=== PATIENT | female | born 1940 | race Caucasian/White ===

== ENCOUNTER 2017-02-10 14:18 | Emergency (ER) | payer MEDICARE ==
[~2017-02-10] VITALS: Ht 152.4 cm; Wt 45.4 kg
[~2017-02-10 14:18] MED LIST: ALBU6.7H INH; Acetaminophen PO; BESI5DRO OP; CYCL5.5D OP; FLUT1DIS27 INH; FOLI1TAB16 PO; LOTE5DRO3 LEFTEYE; METH2.5T PO; MONT10TA22 PO; MULT-70 PO; Metoprolol Tartrate PO; PANT40TA2 PO; PRED20TA PO; SULF1TAB48 PO
[2017-02-10] MEDS ORDERED: ALBUTEROL SULFATE 2.5 MG/3 ML NEBU NEB ONE (14:45)
[2017-02-10] MEDS ORDERED: IV NORMAL SALINE 500 ML BAG IV ONE (14:45)
[2017-02-10] MEDS ORDERED: IPRATROPIUM BROMIDE 0.5 MG/2.5 ML NEBU NEB ONE (14:45)
[2017-02-10] MEDS ORDERED: ALBUTEROL SULFATE 2.5 MG/ 0.5 ML NEBU ONE (14:59)
[2017-02-10] MEDS ORDERED: IPRATROPIUM BROMIDE 0.5 MG/2.5 ML NEBU ONE (14:59)
--- NOTE | 2017-02-10 15:08 | NUR ---
lbs drawn, influenza swabs sent, resp tx completed, pt to xray dept.
[2017-02-10 15:16] LABS: CALCIUM 8.8 mg/dL (8.5-10.1); CREATININE 1.1 mg/dL (0.6-1.3); POTASSIUM 4.9 mmol/L (3.5-5.1)
[2017-02-10 15:19] LABS: BASOPHILS % (AUTO) 0.4 % (0.0-2.0); EOSINOPHILS # (AUTO) 0.1 K/uL (0.0-0.7); EOSINOPHILS % (AUTO) 0.8 % (0.0-7.0); HEMATOCRIT 35.3 % (37.0-47.0); HEMOGLOBIN 11.5 g/dL (12.0-16.0); LYMPHOCYTES # (AUTO) 2.2 K/uL (0.8-4.8); LYMPHOCYTES % (AUTO) 18.9 % (20.5-51.5); MEAN CORPUSCULAR HEMOGLOBIN 29.7 uug (27.0-31.0); MEAN CORPUSCULAR HGB CONC 33 g/dL (32.0-37.0); MEAN CORPUSCULAR VOLUME 91.3 fL (81.0-99.0); MONOCYTES # (AUTO) 0.9 K/uL (0.1-1.30); MONOCYTES % (AUTO) 7.9 % (0.0-11.0); NEUTROPHILS # (AUTO) 8.2 K/uL (1.8-8.9); PLATELET COUNT (AUTO) 327 K/uL (150-450); RED BLOOD CELL COUNT(AUTO) 3.86 MIL/uL (4.20-5.40); RED CELL DISTRIBUTION WIDTH 16.8 % (11.5-14.5); WHITE BLOOD COUNT (AUTO) 11.4 K/uL (4.0-11.2)
[2017-02-10 15:22] LABS: TROPONIN I < 0.017 ng/mL (0.00-0.056)
[2017-02-10 15:29] LABS: ALBUMIN 3.5 g/dL (3.4-5.0); BILIRUBIN,DIRECT 0.1 mg/dL (0.0-0.2); BILIRUBIN,TOTAL 0.4 mg/dL (0.2-1.0)
[2017-02-10 15:36] LABS: ANISOCYTOSIS 1+
[2017-02-10 16:07] LABS: *BILIRUBIN,URIN NEGATIVE (NEGATIVE); *BLOOD, URINE NEGATIVE (NEGATIVE); *COLOR,URINE YELLOW (YELLOW); *KETONES,URINE NEGATIVE (NEGATIVE); *PROTEIN,URINE NEGATIVE (NEGATIVE); *UROBILINOGEN,URINE 0.2 E.U./dl (NORMAL); NITRITE, URINE NEGATIVE (NEGATIVE); PH,URINE 6.5 (5.0-8.0); UGLUCOSE NEGATIVE (NEGATIVE)
[2017-02-10 16:19] LABS: *CLARITY,URINE SLIGHTLY HAZY (CLEAR); BACTERIA,URINE MODERATE /HPF (NONE SEEN); LEUKOCYTE ESTERASE ,URINE TRACE (NEGATIVE); RBC,URINE 0-3 /HPF (0-3)
[2017-02-10 16:20] LABS: CALCIUM OXALATE CRYSTALS,UR FEW /HPF (NONE SEEN); MUCUS,URINE MODERATE /LPF (0-FEW); SQUAMOUS EPITHELIAL CELL,UR FEW /HPF (NONE SEEN)
[2017-02-10] MEDS ORDERED: ONDANSETRON IV *ER 4 MG/2 ML VIAL IV ONE (16:30)
[2017-02-10] MEDS ORDERED: HYDROMORPHONE 1 MG/1 ML DISP.SYRIN IV ONE (16:30)
[2017-02-10] MEDS ORDERED: ONDANSETRON 4 MG/2 ML VIAL ONE (16:35)
[2017-02-10] MEDS ORDERED: HYDROMORPHONE 1 MG/1 ML DISP.SYRIN ONE (16:35)
--- NOTE | 2017-02-10 16:40 | NUR ---
mse completed, meds administered, iv d/c'd with cath intact. pt d/c'd home, aci /rx x1 given. pt's daughter present whom is to drive
[2017-02-10 16:43] VITALS: BP 122/62
== END 2017-02-10 16:44 | disposition home or self-care (01) ==
LOC: ER 14:18
DX: M54.6 Pain in thoracic spine (principal); I10 Essential (primary) hypertension; J45.909 Unspecified asthma, uncomplicated; M19.90 Unspecified osteoarthritis, unspecified site; Z85.820 Personal history of malignant melanoma of skin
CPT/HCPCS: 36415; 70030-TC; 71010; 72072; 72100; 83605; 85025; 87040; 87077; 87086; 87400; 93005; A4663; J1170; J2405; J3590; J7040

== ENCOUNTER 2017-02-18 08:27 | Emergency (ER) | payer MEDICARE ==
[~2017-02-18] VITALS: Ht 152.4 cm; Wt 52.2 kg
--- NOTE | 2017-02-18 08:58 | NUR ---
Patient discharged to home in stable conditon. Written and verbal after care instructions given to patient and family. Patient and family verbalized understanding of instructions.
[2017-02-18] MEDS ORDERED: SULFAMETH/TRIMETH 800/160 MG TABLET ONE (08:59)
[2017-02-18] MEDS ORDERED: SULFAMETH/TRIMETH 800/160 MG TABLET PO ONE (09:00)
== END 2017-02-18 08:59 | disposition home or self-care (01) ==
LOC: ER 08:27
DX: L03.113 Cellulitis of right upper limb (principal); I10 Essential (primary) hypertension; J45.909 Unspecified asthma, uncomplicated; M19.90 Unspecified osteoarthritis, unspecified site; Z85.820 Personal history of malignant melanoma of skin
CPT/HCPCS: 99283; A4663

== ENCOUNTER 2017-03-11 13:31 | Emergency (ER) | payer MEDICARE ==
[~2017-03-11] VITALS: Ht 154.9 cm; Wt 44.5 kg
[2017-03-11] MEDS ORDERED: LIDOCAINE HCL 1% 20 ML VIAL TP ONE (14:30)
[2017-03-11] MEDS ORDERED: SULFAMETH/TRIMETH 800/160 MG TABLET PO ONE (14:30)
--- NOTE | 2017-03-11 14:31 | NUR ---
PT WAS EVALUATED BY DR BHAGAT. I&D PROCEDURE WAS PERFORMED BY DR BHAGAT. PT TOLERATED TO PROCEDURE WITHOUT COMPLICATIONS. PT WAS D/C TO HOME. D/C INSTRUCTIONS GIVEN TO THE PT AND TO HER DOUGHTER.
[2017-03-11 14:44] VITALS: BP 138/82
[2017-03-11] MEDS ORDERED: SULFAMETH/TRIMETH 800/160 MG TABLET ONE (14:52)
== END 2017-03-11 14:45 | disposition home or self-care (01) ==
LOC: ER 13:31
DX: L03.113 Cellulitis of right upper limb (principal); I10 Essential (primary) hypertension; J45.909 Unspecified asthma, uncomplicated; M19.90 Unspecified osteoarthritis, unspecified site; Z85.820 Personal history of malignant melanoma of skin
CPT/HCPCS: 10060; 99283; A4663; J3490

== ENCOUNTER 2017-03-14 16:33 | Emergency (ER) | payer MEDICARE ==
[~2017-03-14] VITALS: Ht 149.9 cm; Wt 45.4 kg
--- NOTE | 2017-03-14 18:26 | NUR ---
Pt ambulatory to bed 2a w/ family, dr sung at bedside for exam.
--- NOTE | 2017-03-14 18:30 | NUR ---
Pt dc;ed home w/ aci , pt has follow-up appointment on monday w/ her surgeon.
[2017-03-14 18:39] VITALS: BP 132/88
== END 2017-03-14 18:40 | disposition home or self-care (01) ==
LOC: ER 16:33
DX: M70.21 Olecranon bursitis, right elbow (principal); L12.1 Cicatricial pemphigoid; Y93.89 Activity, other specified; I10 Essential (primary) hypertension; J45.909 Unspecified asthma, uncomplicated; M19.90 Unspecified osteoarthritis, unspecified site; Z85.820 Personal history of malignant melanoma of skin
CPT/HCPCS: A4663

== ENCOUNTER 2017-05-03 14:41 | Outpatient (CLI) | payer MEDICARE ==
[2017-05-03] MEDS ORDERED: PRED10TA PO (15:27)
== END 2017-05-03 23:59 | disposition home or self-care (01) ==
LOC: XRAY 14:41
PROVIDERS: ATTEND Internal Medicine Pulmonary Disease
DX: J90 Pleural effusion, not elsewhere classified (principal); J40 Bronchitis, not specified as acute or chronic; J98.11 Atelectasis
CPT/HCPCS: 71010

== ENCOUNTER 2017-05-03 15:13 | Emergency (ER) | payer MEDICARE ==
[~2017-05-03] VITALS: Ht 152.4 cm; Wt 47.2 kg
[2017-05-03] MEDS ORDERED: PRED10TA PO (15:27)
[2017-05-03] MEDS ORDERED: ALBUTEROL SULFATE 2.5 MG/3 ML NEBU NEB ONE (15:30)
[2017-05-03] MEDS ORDERED: IPRATROPIUM BROMIDE 0.5 MG/2.5 ML NEBU NEB ONE (15:30)
[2017-05-03] MEDS ORDERED: IPRATROPIUM BROMIDE 0.5 MG/2.5 ML NEBU ONE (15:40)
[2017-05-03] MEDS ORDERED: ALBUTEROL SULFATE 2.5 MG/3 ML NEBU ONE (15:40)
--- NOTE | 2017-05-03 15:40 | NUR ---
PT IS IN ROOM #1B. DR BHAGAT EVALUATED THE PT.
--- NOTE | 2017-05-03 16:02 | NUR ---
PT WAS D/C TO HOME. D/C INSTRUCTIONS GIVEN TO THE PT. NO SOB. NO N/V. GAIT IS STABLE.
[2017-05-03 16:03] VITALS: BP 141/79
== END 2017-05-03 16:03 | disposition home or self-care (01) ==
LOC: ER 15:15
DX: J98.01 Acute bronchospasm (principal); I10 Essential (primary) hypertension; M19.90 Unspecified osteoarthritis, unspecified site; Z85.820 Personal history of malignant melanoma of skin; Z90.710 Acquired absence of both cervix and uterus
CPT/HCPCS: A4663; J3590

== ENCOUNTER 2017-07-02 19:03 | Emergency (ER) | payer MEDICARE ==
[~2017-07-02] VITALS: Ht 157.5 cm; Wt 46.3 kg
[~2017-07-02 19:03] MED LIST changes: -MULT-70 PO; +MULT1TAB73 PO; +PRED10TA PO
--- NOTE | 2017-07-02 20:20 | NUR ---
ROCKY speaking with Dr. Manley.
--- NOTE | 2017-07-02 20:24 | NUR ---
Call placed to ROCKY Santoro speaking with him.
--- NOTE | 2017-07-02 20:39 | NUR ---
Patient discharged to home in stable conditon. Written and verbal after care instructions given. Patient verbalizes understanding of instructions.
== END 2017-07-02 20:40 | disposition home or self-care (01) ==
LOC: ER 19:13
DX: M70.21 Olecranon bursitis, right elbow (principal); Y93.89 Activity, other specified; I10 Essential (primary) hypertension; I48.91 Unspecified atrial fibrillation; M19.90 Unspecified osteoarthritis, unspecified site
CPT/HCPCS: A4663

== ENCOUNTER 2017-09-28 15:17 | Emergency (ER) | payer MEDICARE ==
[~2017-09-28] VITALS: Ht 152.4 cm; Wt 45.4 kg
[2017-09-28] MEDS ORDERED: MOXI3DRO EACHEYE (15:34)
[2017-09-28] MEDS ORDERED: HYDR-3326 PO (15:34)
[2017-09-28] MEDS ORDERED: NEO/5DRO3 EACHEYE (15:34)
[2017-09-28] MEDS ORDERED: PRED20TA PO (15:40)
--- NOTE | 2017-09-28 15:46 | NUR ---
Received ALOX4 with pt coming from home after home health nurse called daughter stating that her HR was low, daughter came home and brought pt here to the ER. Pt placed on CR monitor with labs drawn and SL placed in RT AC 20g site without redness or swelling at this time.
[2017-09-28] MEDS ORDERED: ACET-2605 PO (15:53)
[2017-09-28] MEDS ORDERED: ELIQUIS PO (15:55)
[2017-09-28 16:05] LABS: CARBON DIOXIDE 31 mmol/L (21-32); CHLORIDE 108 mmol/L (98-107); CREATININE 0.8 mg/dL (0.6-1.3); GLUCOSE 103 mg/dL (74-106); POTASSIUM 4.3 mmol/L (3.5-5.1); UREA NITROGEN, BLOOD 22 mg/dL (7-18)
[2017-09-28 16:17] LABS: BASOPHILS # (AUTO) 0.2 K/uL (0.0-8.0); BASOPHILS % (AUTO) 1.8 % (0.0-2.0); EOSINOPHILS % (AUTO) 0.1 % (0.0-7.0); HEMATOCRIT 41.3 % (37-47); HEMOGLOBIN 13.3 G/DL (12.0-16.0); LYMPHOCYTES % (AUTO) 10.9 % (20.5-51.5); MEAN CORPUSCULAR HEMOGLOBIN 29.8 UUG (27.0-31.0); MEAN CORPUSCULAR HGB CONC 32 g/dL (32.0-37.0); MEAN CORPUSCULAR VOLUME 92.4 FL (81.0-99.0); MONOCYTES # (AUTO) 0.4 K/UL (0.1-1.30); MONOCYTES % (AUTO) 4.2 % (0.0-11.0); PLATELET COUNT (AUTO) 309 K/UL (150-450); RED BLOOD CELL COUNT(AUTO) 4.47 MIL/UL (4.2-5.4); WHITE BLOOD COUNT (AUTO) 9.6 K/UL (4.0-11.2)
[2017-09-28 16:21] LABS: ALANINE AMINOTRANSFERASE 26 U/L (14-59); ALKALINE PHOSPHATASE 57 U/L (50-136); ASPARTATE AMINOTRANSFERASE 18 U/L (15-37); BILIRUBIN,DIRECT 0.1 mg/dL (0.0-0.2); BILIRUBIN,TOTAL 0.2 mg/dL (0.2-1.0); TOTAL PROTEIN, SERUM 6.4 g/dL (6.4-8.2)
[2017-09-28] MEDS ORDERED: ACETAMINOPHEN 325 MG TABLET PO ONE (17:15)
--- NOTE | 2017-09-28 17:23 | NUR ---
Medication given tolerated well no adverse reaction at this time.
[2017-09-28] MEDS ORDERED: ACETAMINOPHEN ES 500 MG TABLET ONE (17:36)
--- NOTE | 2017-09-28 17:52 | NUR ---
Home with [facility] no rx for pt at time of dc pt in stable condition at time of dc.
[2017-09-28 17:53] VITALS: BP 144/73
== END 2017-09-28 17:57 | disposition home or self-care (01) ==
LOC: ER 15:21
DX: I49.3 Ventricular premature depolarization (principal); L12.1 Cicatricial pemphigoid; I11.0 Hypertensive heart disease with heart failure; I50.32 Chronic diastolic (congestive) heart failure; I48.0 Paroxysmal atrial fibrillation; J44.9 Chronic obstructive pulmonary disease, unspecified; M19.90 Unspecified osteoarthritis, unspecified site; Z79.01 Long term (current) use of anticoagulants
CPT/HCPCS: 36415; 71010; 80048; 80076; 83605; 83880; 84484; 85025; 85379; 85730; 87040 ×2; 93005; 99285; A4663; 70030-TC

== ENCOUNTER 2017-10-01 13:10 | Emergency (ER) | payer MEDICARE ==
[~2017-10-01] VITALS: Ht 144.8 cm; Wt 47.6 kg
[~2017-10-01 13:10] MED LIST changes: +ACET-2605 PO; -Acetaminophen PO; -BESI5DRO OP; +ELIQUIS PO; -FOLI1TAB16 PO; +HYDR-3326 PO; -LOTE5DRO3 LEFTEYE; -METH2.5T PO; +MOXI3DRO EACHEYE; -Metoprolol Tartrate PO; +NEO/5DRO3 EACHEYE; -PRED10TA PO; -SULF1TAB48 PO
--- NOTE | 2017-10-01 13:29 | NUR ---
DR ISABEL AT BEDSIDE TO EVALUATE PT.
[2017-10-01 13:36] VITALS: BP 117/62
--- NOTE | 2017-10-01 13:43 | NUR ---
Patient discharged to home in stable conditon. Written and verbal after care instructions given. Patient verbalizes understanding of instructions. Pt left Er w/ steady gait accompained by family.
== END 2017-10-01 13:45 | disposition home or self-care (01) ==
LOC: ER 13:10
DX: L02.413 Cutaneous abscess of right upper limb (principal); I10 Essential (primary) hypertension; M19.90 Unspecified osteoarthritis, unspecified site; Z85.820 Personal history of malignant melanoma of skin; J45.909 Unspecified asthma, uncomplicated; I48.91 Unspecified atrial fibrillation
CPT/HCPCS: 99283; A4663

== ENCOUNTER 2017-10-10 13:23 | Inpatient (IN) | payer MEDICARE ==
[~2017-10-10] VITALS: Ht 154.9 cm; Wt 46.7 kg
--- NOTE | 2017-10-10 14:32 | NUR ---
DR ISABEL AT THE BEDSIDE FOR EVAL AND EXAM.
[2017-10-10 14:40] LABS: CARBON DIOXIDE 28 mmol/L (21-32); CHLORIDE 103 mmol/L (98-107); CREATININE 1.4 mg/dL (0.6-1.3); GLUCOSE 254 mg/dL (74-106); POTASSIUM 5.6 mmol/L (3.5-5.1); UREA NITROGEN, BLOOD 31 mg/dL (7-18)
[2017-10-10 14:43] LABS: BASOPHILS # (AUTO) 0.1 K/uL (0.0-8.0); HEMOGLOBIN 12.3 G/DL (12.0-16.0); LYMPHOCYTES # (AUTO) 0.5 K/UL (0.8-4.8); MONOCYTES # (AUTO) 0.1 K/UL (0.1-1.30); NEUTROPHILS # (AUTO) 3.7 K/UL (1.8-8.9); WHITE BLOOD COUNT (AUTO) 4.4 K/UL (4.0-11.2)
[2017-10-10] MEDS ORDERED: SODIUM POLYSTYRENE SULFONATE 15 G/60 ML LIQUID UDC PO ONE (14:45)
[2017-10-10 14:46] LABS: ALANINE AMINOTRANSFERASE 23 U/L (14-59); ALKALINE PHOSPHATASE 72 U/L (50-136); ASPARTATE AMINOTRANSFERASE 16 U/L (15-37); BASOPHILS % (AUTO) 1.7 % (0.0-2.0); BILIRUBIN,DIRECT 0.1 mg/dL (0.0-0.2); BILIRUBIN,TOTAL 0.1 mg/dL (0.2-1.0); HEMATOCRIT 38.3 % (37-47); LYMPHOCYTES % (AUTO) 10.7 % (20.5-51.5); MEAN CORPUSCULAR HEMOGLOBIN 29.9 UUG (27.0-31.0); MEAN CORPUSCULAR HGB CONC 32 g/dL (32.0-37.0); MEAN CORPUSCULAR VOLUME 93.1 FL (81.0-99.0); MONOCYTES % (AUTO) 1.8 % (0.0-11.0); NEUTROPHILS % (AUTO) 85.8 % (38.5-71.5); PLATELET COUNT (AUTO) 403 K/UL (150-450); RED BLOOD CELL COUNT(AUTO) 4.12 MIL/UL (4.2-5.4); TOTAL PROTEIN, SERUM 6.3 g/dL (6.4-8.2)
[2017-10-10] MEDS ORDERED: SODIUM POLYSTYRENE SULFONATE 15 G/60 ML LIQUID UDC ONE (15:06)
--- NOTE | 2017-10-10 15:17 | NUR ---
DR CONN SPOKE TO AJ MORAN.
[2017-10-10] MEDS ORDERED: DICL100G16 TP (15:33)
[2017-10-10] MEDS ORDERED: BESI5DRO EACHEYE (15:33)
[2017-10-10] MEDS ORDERED: CYCL30DR EACHEYE (15:33)
[2017-10-10] MEDS ORDERED: ALBU18HF2 INH (16:02)
[2017-10-10] MEDS ORDERED: LOTE5DRO3 LEFTEYE (16:02)
--- NOTE | 2017-10-10 16:02 | NUR ---
BELONGING LIST COMPLETED AND PLACED IN THE CHART. NOT CANDIDATE FOR MRSA.
[2017-10-10] MEDS ORDERED: IV NS 1000 ML 1,000 ML IV PRN (16:15)
[2017-10-10] MEDS ORDERED: IPRATROPIUM BROMIDE 0.5 MG/2.5 ML NEBU NEB PRN (16:15)
[2017-10-10] MEDS ORDERED: ALBUTEROL SULFATE 2.5 MG/3 ML NEBU NEB PRN (16:15)
[2017-10-10] MEDS ORDERED: ONDANSETRON 4 MG/2 ML VIAL IV PRN (16:15)
[2017-10-10] MEDS ORDERED: ALBUTEROL SULFATE 2.5 MG/ 0.5 ML NEBU NEB PRN (16:45)
[2017-10-10 16:46] VITALS: BP 122/62
--- NOTE | 2017-10-10 17:00 | NUR ---
RECEIVED RESIDENT IN [facility]. PT WAS SENT TO HOSPITAL BY PRIMARY FOR HYPERKALEMIA. SHE WAS ACCOMPANIED BY HER TWO GRANDSONS. RECEIVED HEALTH HX FROM KIM PISANO (GRANDSON) AND BY THE PATIENT. RECEIVED PT IN STABLE CONDITION, SHE HAS A PAD MACHINE OPERATOR IN PLACED BY HER PRIMARY DR. AND SHE IS ALSO ON TELE MONITORING. RESIDENT IS AWARE OF HER SURROUNDINGS. SHE IS AMBULATORY WITH ASSIST AND WALKER. 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 PT STATED THAT HER DR TOLD HER TO KEEP IT COVER FOR THE NEXT TWO DAYS AND NOT TO SHOWER. RESIDENT IS ON A CARDIAC DIET BUT PT STATES ITS SOMETIMES HARD TO SWALLOW DUE TO ESOPHAGEAL SUTURES. PT IS RESTING COMFORTABLY WITH NO APPARENT SOB. NO DISTRESS AND NO DISCOMFORT. PT STATED SHE HAD A MILD HEADACHE AND TYLENOL WAS GIVEN. SHE HAS THREE EYE PENDING HOME MEDICATION AT THE PHARMACY FOR HER RECENT EYE SURGERY. DAUGHTER, MARA, CAME AROUND 1800 AND SHE ADDED TO PT HEALTH HISTORY.
[2017-10-10] MEDS: MONTELUKAST SODIUM 10 MG TABLET PO SCH (18:00)
[2017-10-10] MEDS ORDERED: CEFTRIAXONE 1 G in IV DEXTROSE 5% 50 ML IV SCH (18:00)
[2017-10-10] MEDS: ACETAMINOPHEN 325 MG TABLET PO PRN (18:01)
[2017-10-10] MEDS ORDERED: ALBUTEROL SULFATE 2.5 MG/3 ML NEBU NEB SCH (19:30)
[2017-10-10] MEDS: IPRATROPIUM BROMIDE 0.5 MG/2.5 ML NEBU NEB SCH (19:41)
[2017-10-10] MEDS: ALBUTEROL SULFATE 2.5 MG/ 0.5 ML NEBU NEB SCH (19:41)
[2017-10-10 20:00] VITALS: BP 101/46
[2017-10-10] MEDS ORDERED: APIXABAN 5 MG TABLET PO ONE (20:00)
--- NOTE | 2017-10-10 20:00 | NUR ---
nsg: pt received a/o x 4, no acute distress noted. c/o slight pain on left eye, s/p surgery 2 weeks ago per pt. on RA saturating at 95%. experienced sob on exertion. receives breathing treatment via [facility]. tele, SR. cont to monitor.
[2017-10-10] MEDS ORDERED: FLUTICASONE/SALMETEROL 100/50 1 INH DISK.W.DEV INH SCH (21:00)
[2017-10-10] MEDS: methylPREDNISolone SOD SUCC 40 MG/ML VIAL IV SCH (21:20)
[2017-10-10] MEDS: CLINDAMYCIN HCL 300 MG CAPSULE PO SCH (21:20)
[2017-10-11] VITALS: BP 123/54
[2017-10-11] MEDS: LOTEPREDNOL 0.5% OPHT DROP 5 ML BOTTLE LEFTEYE SCH ×5 (01:09→20:44)
[2017-10-11] MEDS: ACETAMINOPHEN 325 MG TABLET PO PRN ×3 (01:13→20:42)
[2017-10-11] MEDS: IPRATROPIUM BROMIDE 0.5 MG/2.5 ML NEBU NEB SCH ×4 (01:28→20:00)
[2017-10-11] MEDS: ALBUTEROL SULFATE 2.5 MG/ 0.5 ML NEBU NEB SCH ×4 (01:28→20:00)
[2017-10-11 04:00] VITALS: BP 111/64
--- NOTE | 2017-10-11 05:24 | NUR ---
nsg: all needs attended. denies discomfort. cont with treatment plan.
[2017-10-11] MEDS: methylPREDNISolone SOD SUCC 40 MG/ML VIAL IV SCH ×3 (05:32→20:42)
[2017-10-11] MEDS: CLINDAMYCIN HCL 300 MG CAPSULE PO SCH ×3 (05:32→20:47)
[2017-10-11] MEDS: HYDROCODONE/APAP 5-325MG TABLET PO PRN (05:39)
[2017-10-11 07:11] LABS: BASOPHILS % (AUTO) 0.6 % (0.0-2.0); HEMATOCRIT 35.9 % (31.2-41.9); HEMOGLOBIN 12.1 g/dL (10.9-14.3); LYMPHOCYTES # (AUTO) 1.1 K/uL (20.0-40.0); LYMPHOCYTES % (AUTO) 14.7 % (20.5-51.5); MEAN CORPUSCULAR HEMOGLOBIN 31.4 uug (24.7-32.8); MEAN CORPUSCULAR HGB CONC 34 g/dL (32.3-35.6); MEAN CORPUSCULAR VOLUME 93.1 fL (75.5-95.3); MONOCYTES # (AUTO) 0.5 K/uL (2.0-10.0); MONOCYTES % (AUTO) 6.2 % (0.0-11.0); NEUTROPHILS % (AUTO) 78.5 % (38.5-71.5); PLATELET COUNT (AUTO) 312 K/uL (179-408); RED BLOOD CELL COUNT(AUTO) 3.85 MIL/uL (3.63-4.92)
[2017-10-11 07:18] LABS: THYROID STIMULATING HORMONE 0.842 mIU/mL (0.358-3.740)
[2017-10-11] MEDS ORDERED: DILT120C51 PO (07:19)
[2017-10-11 07:23] LABS: WHITE BLOOD COUNT (AUTO) 7.6 K/uL (3.8-11.8)
--- NOTE | 2017-10-11 07:30 | NUR ---
RECEIVED PATIENT IN BED AWAKE ALERT AND ORIENTED SHE IS ON ROOM AIR WITH NO SHORTNESS OF BREATH AT THIS TIME.LEFT EYE WITH A PATCH STATED S/P SURGERY WITH SOME DISCHARGE WHEN CHECKED PATIENT IS RESTING WITH NO DISTRESS AT THIS TIME.
[2017-10-11 08:22] LABS: ALKALINE PHOSPHATASE 61 U/L (50-136); ASPARTATE AMINOTRANSFERASE 22 U/L (15-37); BILIRUBIN,TOTAL 0.1 mg/dL (0.2-1.0); CARBON DIOXIDE 30 mmol/L (21-32); CHLORIDE 106 mmol/L (98-107); CHOLESTEROL 199 mg/dL (<200); GLUCOSE 128 mg/dL (74-106); HDL CHOLESTEROL 76 mg/dL (40-60); MAGNESIUM 1.9 mg/dL (1.8-2.4); PHOSPHOROUS 3.9 mg/dL (2.5-4.9); POTASSIUM 5.1 mmol/L (3.5-5.1); TOTAL PROTEIN, SERUM 5.9 g/dL (6.4-8.2); TRIGLYCERIDES 100 MG/DL (30-150)
[2017-10-11] MEDS: FLUTICASONE/VILANTEROL 1 EACH BLST.W.DEV INH SCH (08:28)
[2017-10-11] MEDS ORDERED: ELIQUIS 2.5 MG PO SCH (09:00)
[2017-10-11] MEDS ORDERED: predniSONE 20 MG TABLET PO SCH (09:00)
[2017-10-11 09:07] LABS: ALANINE AMINOTRANSFERASE 23 U/L (14-59); UREA NITROGEN, BLOOD 28 mg/dL (7-18)
[2017-10-11 12:49] VITALS: BP 114/54
--- NOTE | 2017-10-11 14:25 | NUR ---
WOUND CARE CONSULT: PT PRESENTS WITH RT ELBOW FRAGILE HEALED AREA. RECOMMENDATIONS MADE FOR SKIN PROTECTION. DISCUSSED WITH NURSING STAFF AND PATIENT. PT TO FOLLOW UP WITH SURGEON. WILL SEE PRN. CURRENT INNA SCORE IS 20. MD IN AGREEMENT WITH PLAN OF CARE. Addendum: 10/11/17 at 1426 by MARA CASTILLO RN Amended: Links added.
[2017-10-11 16:08] VITALS: BP 116/58
[2017-10-11] MEDS ORDERED: OPTH EACHEYE SCH (17:00)
[2017-10-11] MEDS ORDERED: RESTASIS 0.05% EACHEYE SCH (17:00)
[2017-10-11] MEDS: DILTIAZEM HCL CD 120 MG CAP.SR.24H PO SCH (17:03)
[2017-10-11] MEDS: MONTELUKAST SODIUM 10 MG TABLET PO SCH (17:03)
[2017-10-11] MEDS ORDERED: PATIENT MAY USE OWN MED- MD OK LEFTEYE SCH (17:30)
[2017-10-11] MEDS: prednisoLONE ACET 1% OPHT DROP 5 ML BOTTLE LEFTEYE SCH ×2 (17:40→20:44)
[2017-10-11] MEDS: VIGAMOX LEFTEYE SCH ×2 (17:40→20:45)
--- NOTE | 2017-10-11 17:54 | NUR ---
PATIENT IS RESTING IN BED WAS MEDICATED EARLIER STATED HAS HEADACHE GENERATED BY HER EYE AND EFFECTIVE REMAIN ON EYE DROPS ORDERED.MADE COMFORTABLE.
[2017-10-11 20:41] VITALS: BP 124/52
[2017-10-11] MEDS: ATORVASTATIN 20 MG TABLET PO SCH (20:43)
[2017-10-11] MEDS: ELIQUIS 2.5 MG PO SCH (20:45)
[2017-10-12] VITALS: BP 130/56
[2017-10-12] MEDS: IPRATROPIUM BROMIDE 0.5 MG/2.5 ML NEBU NEB SCH ×4 (01:22→19:20)
[2017-10-12] MEDS: ALBUTEROL SULFATE 2.5 MG/ 0.5 ML NEBU NEB SCH ×4 (01:22→19:20)
[2017-10-12] MEDS: HYDROCODONE/APAP 5-325MG TABLET PO PRN ×2 (02:06→20:24)
[2017-10-12 04:00] VITALS: BP 135/67
[2017-10-12] MEDS: ACETAMINOPHEN 325 MG TABLET PO PRN (05:24)
[2017-10-12] MEDS: CLINDAMYCIN HCL 300 MG CAPSULE PO SCH ×2 (05:25→13:03)
[2017-10-12 06:50] LABS: ALANINE AMINOTRANSFERASE 21 U/L (14-59); ALKALINE PHOSPHATASE 68 U/L (50-136); ASPARTATE AMINOTRANSFERASE 15 U/L (15-37); BILIRUBIN,TOTAL 0.2 mg/dL (0.2-1.0); CARBON DIOXIDE 24 mmol/L (21-32); CHLORIDE 106 mmol/L (98-107); GLUCOSE 148 mg/dL (74-106); PHOSPHOROUS 3.7 mg/dL (2.5-4.9); POTASSIUM 5.1 mmol/L (3.5-5.1); TOTAL PROTEIN, SERUM 6.3 g/dL (6.4-8.2); UREA NITROGEN, BLOOD 30 mg/dL (7-18)
[2017-10-12 06:58] LABS: HEMOGLOBIN 12.8 g/dL (10.9-14.3); LYMPHOCYTES # (AUTO) 0.7 K/uL (20.0-40.0); MEAN CORPUSCULAR HEMOGLOBIN 31.3 uug (24.7-32.8); RED BLOOD CELL COUNT(AUTO) 4.08 MIL/uL (3.63-4.92)
--- NOTE | 2017-10-12 07:00 | NUR ---
Assisted w/ all needs, no acute resp distress. Afebrile.
[2017-10-12 07:10] LABS: BASOPHILS # (AUTO) 0.1 K/uL (0.0-8.0); BASOPHILS % (AUTO) 0.6 % (0.0-2.0); HEMATOCRIT 38.2 % (31.2-41.9); LYMPHOCYTES % (AUTO) 6.6 % (20.5-51.5); MEAN CORPUSCULAR HGB CONC 33 g/dL (32.3-35.6); MEAN CORPUSCULAR VOLUME 93.7 fL (75.5-95.3); MONOCYTES # (AUTO) 0.3 K/uL (2.0-10.0); MONOCYTES % (AUTO) 3.4 % (0.0-11.0); NEUTROPHILS % (AUTO) 89.4 % (38.5-71.5); PLATELET COUNT (AUTO) 333 K/uL (179-408)
[2017-10-12] MEDS: ELIQUIS 2.5 MG PO SCH ×2 (08:10→20:24)
[2017-10-12] MEDS: methylPREDNISolone SOD SUCC 40 MG/ML VIAL IV SCH (08:11)
[2017-10-12] MEDS: FLUTICASONE/VILANTEROL 1 EACH BLST.W.DEV INH SCH (08:11)
[2017-10-12] MEDS: DILTIAZEM HCL CD 120 MG CAP.SR.24H PO SCH (08:11)
[2017-10-12] MEDS: VIGAMOX LEFTEYE SCH ×4 (08:12→20:23)
[2017-10-12] MEDS: prednisoLONE ACET 1% OPHT DROP 5 ML BOTTLE LEFTEYE SCH ×4 (08:12→20:23)
[2017-10-12] MEDS: LOTEPREDNOL 0.5% OPHT DROP 5 ML BOTTLE LEFTEYE SCH ×4 (08:12→20:23)
[2017-10-12] MEDS: RESTASIS 0.05% RIGHTEYE SCH ×2 (08:13→16:33)
[2017-10-12] MEDS: OPTH RIGHTEYE SCH ×2 (08:13→16:33)
--- NOTE | 2017-10-12 08:30 | NUR ---
RECEIVED AWAKE AND ORIENTED STATED THAT HER LEFT EYE FELT MUCH BETTER REMAIN ON THE EYE DROPS ORDERED.REMAIN ON HHN TREATMENT ORDERED WITH NO SHORTNESS OF BREATH AT THIS TIME.PATIENT IS COMFORTABLE NOT IN DISTRESS AT THIS TIME.
[2017-10-12 11:40] VITALS: BP 110/68
[2017-10-12 11:43] LABS: *BILIRUBIN,URIN NEGATIVE (NEGATIVE); *BLOOD, URINE NEGATIVE (NEGATIVE); *CLARITY,URINE CLEAR (CLEAR); *COLOR,URINE YELLOW (YELLOW); *KETONES,URINE NEGATIVE (NEGATIVE); *PROTEIN,URINE NEGATIVE (NEGATIVE); *UROBILINOGEN,URINE 0.2 E.U./dl (NORMAL); LEUKOCYTE ESTERASE ,URINE NEGATIVE (NEGATIVE); NITRITE, URINE NEGATIVE (NEGATIVE); PH,URINE 5.5 (5.0-8.0)
[2017-10-12 12:02] LABS: UGLUCOSE 1+ (NEGATIVE)
--- NOTE | 2017-10-12 13:00 | NUR ---
PATIENT SEEN AND EXAMINED BY BRAN WITH NEW ORDERS AND NOTED AND THE PLAN IS THAT PATIENT WILL BE STARTED ON ANTIBIOTICS EYE OINTMENT FOR INFECTION TO HER LEFT EYE PATIENT AWARE.
[2017-10-12] MEDS: GENTAMICIN SULFATE OPHT DROP 5 ML BOTTLE LEFTEYE SCH ×2 (14:29→17:35)
[2017-10-12 15:30] VITALS: BP 126/52
[2017-10-12 17:03] LABS: SQUAMOUS EPITHELIAL CELL,UR FEW /HPF (NONE SEEN); WBC,URINE 0-3 /HPF (0-3)
[2017-10-12] MEDS: MONTELUKAST SODIUM 10 MG TABLET PO SCH (17:35)
--- NOTE | 2017-10-12 18:00 | NUR ---
PATIENT INDICATED THAT SHE WOULD LIKE TO GO HOME TODAY THE ANIMAL ATTENDANTS AND TRAINERS SPOKE WITH HER AND BRAN WANTS HER TO STAY ONE MORE DAY FOR THE OBSERVATION OF HER LEFT EYE INFECTION PATIENT REMAINS ON MULTIPLE EYE DROPS ORDERED SHE HAS DISCHARGE FRON THE LEFT EYE CLEANSED WITH EYE PATCH INTACT.
[2017-10-12 20:00] VITALS: BP 105/47
--- NOTE | 2017-10-12 20:13 | NUR ---
Received patient awake no SOB denies chest pain . Still c/o on & off left eye discomfort. Medicated for pain PRN. Vital signs WNL.
[2017-10-12] MEDS: ATORVASTATIN 20 MG TABLET PO SCH (20:23)
[2017-10-13] MEDS: IPRATROPIUM BROMIDE 0.5 MG/2.5 ML NEBU NEB SCH ×3 (01:21→13:34)
[2017-10-13] MEDS: ALBUTEROL SULFATE 2.5 MG/ 0.5 ML NEBU NEB SCH ×3 (01:21→13:34)
[2017-10-13] MEDS: ACETAMINOPHEN 325 MG TABLET PO PRN ×2 (02:12→08:49)
[2017-10-13 04:00] VITALS: BP 133/58
[2017-10-13] MEDS: GENTAMICIN SULFATE OPHT DROP 5 ML BOTTLE LEFTEYE SCH ×3 (06:09→12:16)
--- NOTE | 2017-10-13 06:40 | NUR ---
Assisted w/ all needs. Will continue to monitor.
[2017-10-13 06:47] LABS: ALANINE AMINOTRANSFERASE 23 U/L (14-59); ALKALINE PHOSPHATASE 58 U/L (50-136); ASPARTATE AMINOTRANSFERASE 15 U/L (15-37); BILIRUBIN,TOTAL 0.3 mg/dL (0.2-1.0); CARBON DIOXIDE 29 mmol/L (21-32); CHLORIDE 109 mmol/L (98-107); CREATININE 0.8 mg/dL (0.6-1.3); GLUCOSE 96 mg/dL (74-106); MAGNESIUM 1.9 mg/dL (1.8-2.4); PHOSPHOROUS 3.4 mg/dL (2.5-4.9); TOTAL PROTEIN, SERUM 5.5 g/dL (6.4-8.2); UREA NITROGEN, BLOOD 34 mg/dL (7-18)
[2017-10-13 06:59] LABS: BASOPHILS # (AUTO) 0.1 K/uL (0.0-8.0); BASOPHILS % (AUTO) 0.9 % (0.0-2.0); HEMATOCRIT 35.4 % (31.2-41.9); HEMOGLOBIN 11.8 g/dL (10.9-14.3); LYMPHOCYTES # (AUTO) 1.4 K/uL (20.0-40.0); LYMPHOCYTES % (AUTO) 14.1 % (20.5-51.5); MEAN CORPUSCULAR HEMOGLOBIN 30.9 uug (24.7-32.8); MEAN CORPUSCULAR HGB CONC 33 g/dL (32.3-35.6); MEAN CORPUSCULAR VOLUME 93.2 fL (75.5-95.3); MONOCYTES # (AUTO) 1.1 K/uL (2.0-10.0); MONOCYTES % (AUTO) 10.9 % (0.0-11.0); NEUTROPHILS # (AUTO) 7.2 K/uL (1.8-8.9); NEUTROPHILS % (AUTO) 74.1 % (38.5-71.5); PLATELET COUNT (AUTO) 300 K/uL (179-408); WHITE BLOOD COUNT (AUTO) 9.8 K/uL (3.8-11.8)
[2017-10-13] MEDS ORDERED: predniSONE 20 MG TABLET PO SCH (08:00)
[2017-10-13] MEDS: FLUTICASONE/VILANTEROL 1 EACH BLST.W.DEV INH SCH (08:27)
[2017-10-13] MEDS: LOTEPREDNOL 0.5% OPHT DROP 5 ML BOTTLE LEFTEYE SCH ×2 (08:30→12:17)
[2017-10-13] MEDS: prednisoLONE ACET 1% OPHT DROP 5 ML BOTTLE LEFTEYE SCH ×2 (08:30→12:17)
[2017-10-13] MEDS: VIGAMOX LEFTEYE SCH ×2 (08:30→12:17)
[2017-10-13] MEDS: RESTASIS 0.05% RIGHTEYE SCH (08:31)
[2017-10-13] MEDS: ELIQUIS 2.5 MG PO SCH (08:31)
[2017-10-13] MEDS: OPTH RIGHTEYE SCH (08:31)
[2017-10-13] MEDS: DILTIAZEM HCL CD 120 MG CAP.SR.24H PO SCH (08:40)
[2017-10-13 11:09] VITALS: BP 114/56
[2017-10-13] MEDS ORDERED: PRED5DRO4 LEFTEYE (13:10)
[2017-10-13] MEDS ORDERED: ATOR20TA PO (13:10)
[2017-10-13] MEDS ORDERED: ACET325T53 PO (13:10)
[2017-10-13] MEDS ORDERED: GENT5DRO4 LEFTEYE ×2 (13:10→13:15)
[2017-10-13 15:06] VITALS: BP 115/70
--- NOTE | 2017-10-13 15:15 | NUR ---
DISCHARGE NOTE: PT IS BEING D/C WITH HER GRANDSON KAMILLE VIA PRIVATE CAR, ON WHEELCHAIR FOR SAFETY. IV/WRISTBAND REMOVED. PT IS ALERT AND, AWAKE AND ORIENTED X4, PT REFUSED FOR PHARMACIST TO COME BACK AND GIVE EDUCATION. PT REFUSED DOCTOR'S THE NURSE TO ASSIST MAKING DR'S APPOINTMENTS F/U. NO S/S OF RESPIRATORY DISTRESS NOTED. NO PAIN NOTED/REPORTED. PT TOOK HER HOME MEDICATIONS WITH HER. EDUCATION PROVIDED
== END 2017-10-13 15:20 | disposition home or self-care (01) | DRG 682 ==
LOC: ER 13:23 → TELE 16:27 → MED 10-11 21:09
PROVIDERS: ADMIT Internal Medicine; ATTEND Internal Medicine
DX: N17.0 Acute kidney failure with tubular necrosis (principal); I50.33 Acute on chronic diastolic (congestive) heart failure; D89.89 Other specified disorders involving the immune mechanism, not elsewhere classified; E44.0 Moderate protein-calorie malnutrition; E87.5 Hyperkalemia; I08.1 Rheumatic disorders of both mitral and tricuspid valves; H44.002 Unspecified purulent endophthalmitis, left eye; I48.0 Paroxysmal atrial fibrillation; J44.1 Chronic obstructive pulmonary disease with (acute) exacerbation; L03.113 Cellulitis of right upper limb; L02.413 Cutaneous abscess of right upper limb; Z68.1 Body mass index [BMI] 19.9 or less, adult; I48.92 Unspecified atrial flutter; N13.9 Obstructive and reflux uropathy, unspecified; B95.62 Methicillin resistant Staphylococcus aureus infection as the cause of diseases classified elsewhere; L12.1 Cicatricial pemphigoid; Z79.01 Long term (current) use of anticoagulants; M70.21 Olecranon bursitis, right elbow; Z90.710 Acquired absence of both cervix and uterus; Z85.820 Personal history of malignant melanoma of skin; Z87.01 Personal history of pneumonia (recurrent); Z77.22 Contact with and (suspected) exposure to environmental tobacco smoke (acute) (chronic); K12.1 Other forms of stomatitis; Z85.828 Personal history of other malignant neoplasm of skin; K44.9 Diaphragmatic hernia without obstruction or gangrene; J84.10 Pulmonary fibrosis, unspecified; K57.30 Diverticulosis of large intestine without perforation or abscess without bleeding; Z79.52 Long term (current) use of systemic steroids; Z79.899 Other long term (current) drug therapy; N20.0 Calculus of kidney; M19.90 Unspecified osteoarthritis, unspecified site; I49.3 Ventricular premature depolarization; H20.10 Chronic iridocyclitis, unspecified eye; E78.5 Hyperlipidemia, unspecified; I11.0 Hypertensive heart disease with heart failure
CPT/HCPCS: 36415; 71010; 83735; 84100; 84443; 85025; 87086; 93005; 93307; 94640; 94664; A4663; J0696; J2405; J2650; J2920; J3590; J7040; J7060; J7512

== ENCOUNTER 2017-11-14 13:33 | Inpatient (IN) | payer MEDICARE ==
[~2017-11-14] VITALS: Ht 154.9 cm; Wt 44.9 kg
[~2017-11-14 13:33] MED LIST changes: -ACET-2605 PO; +ACET325T53 PO; +ALBU18HF2 INH; -ALBU6.7H INH; +ATOR20TA PO; +BESI5DRO EACHEYE; +CYCL30DR EACHEYE; -CYCL5.5D OP; +DILT120C51 PO; +GENT5DRO4 LEFTEYE; +LOTE5DRO3 LEFTEYE; -MOXI3DRO EACHEYE; -MULT1TAB73 PO; -NEO/5DRO3 EACHEYE; -PANT40TA2 PO; +PRED5DRO4 LEFTEYE
--- NOTE | 2017-11-14 13:54 | NUR ---
MEDICATON LIST REVIEWED WITH PATIENT AND DAUGHTER.
[2017-11-14] MEDS ORDERED: ALBUTEROL SULFATE 2.5 MG/3 ML NEBU ONE ×2 (14:23→15:46)
[2017-11-14] MEDS ORDERED: ALBUTEROL SULFATE 2.5 MG/3 ML NEBU NEB ONE ×2 (14:45→15:00)
[2017-11-14 15:28] LABS: BASOPHILS % (AUTO) 0.3 % (0.0-2.0); HEMATOCRIT 42.5 % (31.2-41.9); HEMOGLOBIN 13.7 g/dL (10.9-14.3); LYMPHOCYTES # (AUTO) 0.5 K/uL (20.0-40.0); LYMPHOCYTES % (AUTO) 7.6 % (20.5-51.5); MEAN CORPUSCULAR HEMOGLOBIN 30.7 uug (24.7-32.8); MEAN CORPUSCULAR HGB CONC 32 g/dL (32.3-35.6); MEAN CORPUSCULAR VOLUME 95.3 fL (75.5-95.3); MONOCYTES # (AUTO) 0.3 K/uL (2.0-10.0); MONOCYTES % (AUTO) 5.3 % (0.0-11.0); NEUTROPHILS # (AUTO) 5.2 K/uL (1.8-8.9); NEUTROPHILS % (AUTO) 86.8 % (38.5-71.5); PLATELET COUNT (AUTO) 293 K/uL (179-408); RED BLOOD CELL COUNT(AUTO) 4.46 MIL/uL (3.63-4.92)
[2017-11-14 15:32] LABS: CARBON DIOXIDE 31 mmol/L (21-32); CHLORIDE 107 mmol/L (98-107); CREATININE 0.9 mg/dL (0.6-1.3); GLUCOSE 162 mg/dL (74-106); POTASSIUM 5.3 mmol/L (3.5-5.1); UREA NITROGEN, BLOOD 23 mg/dL (7-18)
[2017-11-14 15:44] LABS: ALANINE AMINOTRANSFERASE 21 U/L (14-59); ALKALINE PHOSPHATASE 134 U/L (50-136); ASPARTATE AMINOTRANSFERASE 19 U/L (15-37); BILIRUBIN,DIRECT 0.1 mg/dL (0.0-0.2); BILIRUBIN,TOTAL 0.3 mg/dL (0.2-1.0); TOTAL PROTEIN, SERUM 6.2 g/dL (6.4-8.2)
[2017-11-14] MEDS ORDERED: CEFTRIAXONE 1 G in IV DEXTROSE 5% 50 ML IV ONE (16:15)
[2017-11-14] MEDS ORDERED: AZITHROMYCIN IV 500 MG in IV DEXTROSE 5% 250 ML IV ONE (16:15)
[2017-11-14] MEDS ORDERED: IV NORMAL SALINE 1000 ML BAG IV ONE (16:15)
[2017-11-14] MEDS ORDERED: AZITHROMYCIN 500 MG VIAL IV ONE (17:35)
[2017-11-14] MEDS ORDERED: CEFTRIAXONE 1 G VIAL ONE (17:35)
--- NOTE | 2017-11-14 19:06 | NUR ---
Pt resting with NAD noted, report given to Albert MUNOZ, pend tele admit post change of shift.
--- NOTE | 2017-11-14 20:05 | NUR ---
Pt. admitted to TELE , under care of Dr. SHIELDS Belongs List completed
--- NOTE | 2017-11-14 20:06 | NUR ---
REPORT GIVEN TO TAMMY VERMA.
--- NOTE | 2017-11-14 20:10 | NUR ---
PT RECEIVED FROM ED, VIA GURNEY. SON AND DAUGHTER AT BEDSIDE. ORIENTED TO ROOM. V/S STABLE. IN NO ACUTE DISTRESS. NO C/O PAIN AT THIS TIME. IV INTACT AND PATENT. NO C/O OF SOB. ON RA, TOLERATING WELL. AFEBRILE. PT SINUS RHYTHM WITH SOME PVC'S. SAFETY MEASURES IMPLEMENTED. CALL LIGHT WITHIN REACH.
[2017-11-14 20:30] VITALS: BP 136/60
[2017-11-14] MEDS ORDERED: MONT10TA25 PO (21:33)
[2017-11-14] MEDS ORDERED: APIXABAN 5 MG TABLET PO SCH (22:15)
[2017-11-14] MEDS ORDERED: MONTELUKAST SODIUM 10 MG TABLET ONE (22:35)
[2017-11-14] MEDS ORDERED: ATORVASTATIN 20 MG TABLET ONE (22:39)
[2017-11-14] MEDS ORDERED: LEVOFLOXACIN 500 MG/D5W 500 MG in PREMIXED 1 EACH IV SCH (22:45)
[2017-11-14] MEDS ORDERED: IPRATROPIUM BROMIDE 0.5 MG/2.5 ML NEBU NEB PRN (22:45)
[2017-11-14] MEDS ORDERED: ALBUTEROL SULFATE 2.5 MG/3 ML NEBU NEB PRN (22:45)
[2017-11-14] MEDS ORDERED: ONDANSETRON 4 MG/2 ML VIAL IV PRN (22:45)
[2017-11-14] MEDS: ATORVASTATIN 20 MG TABLET PO SCH (22:52)
[2017-11-14] MEDS: MONTELUKAST SODIUM 10 MG TABLET PO SCH (22:52)
[2017-11-14] MEDS: HYDROCODONE/APAP 5-325MG TABLET PO PRN (22:52)
--- NOTE | 2017-11-14 23:00 | NUR ---
PT C/O BACK PAIN 07/06. ADMINISTERED NORCO ORDERED. WILL CONT TO MONITOR.
[2017-11-14] MEDS ORDERED: HYDROCODONE/APAP 5-325MG TABLET ONE (23:05)
[2017-11-15] MEDS ORDERED: LEVOFLOXACIN 500 MG/D5W 100 ML ONE (00:03)
[2017-11-15 00:09] VITALS: BP 113/56
[2017-11-15 04:00] VITALS: BP 130/62
[2017-11-15] MEDS: ACETAMINOPHEN 325 MG TABLET PO PRN ×2 (05:08→22:22)
[2017-11-15] MEDS: methylPREDNISolone SOD SUCC 40 MG/ML VIAL IV SCH ×3 (05:08→22:17)
[2017-11-15] MEDS ORDERED: ACETAMINOPHEN 325 MG TABLET ONE (05:23)
[2017-11-15] MEDS ORDERED: methylPREDNISolone SOD SUCC 40 MG/ML VIAL ONE (05:23)
[2017-11-15] MEDS: PANTOPRAZOLE SODIUM 40 MG TABLET.DR PO SCH (06:09)
--- NOTE | 2017-11-15 06:09 | NUR ---
NON-ADMIN PROTONIX. PT A NEW ADMIT
--- NOTE | 2017-11-15 06:46 | NUR ---
END OF SHIFT NOTES. PT SLEPT WELL THROUGHOUT SHIFT. IN STABLE CONDITION. NO C/O OF SOB THROUGHOUT SHIFT. PAIN MANAGED. SINUS RHYTHM WITH PVC'S AND COUPLETS ON THE TELE MONITOR. ALL NEEDS ATTENDED. SAFETY MAINTAINED. CALL LIGHT WITHIN REACH.
[2017-11-15] MEDS ORDERED: [UNRECOGNIZED DRUG - OTHER] PO SCH (07:49)
--- NOTE | 2017-11-15 08:00 | NUR ---
AWAKE WITH NO EVIDENCE OF PAIN OR DISCOMFORT NOTED, WILL CONTINUE TO MONITOR PATIENT
[2017-11-15 08:08] LABS: BASOPHILS % (AUTO) 0.5 % (0.0-2.0); EOSINOPHILS % (AUTO) 0.2 % (0.0-7.0); HEMOGLOBIN 12.4 g/dL (10.9-14.3); LYMPHOCYTES # (AUTO) 0.7 K/uL (20.0-40.0); LYMPHOCYTES % (AUTO) 9.3 % (20.5-51.5); MEAN CORPUSCULAR HEMOGLOBIN 30.8 uug (24.7-32.8); MEAN CORPUSCULAR HGB CONC 33 g/dL (32.3-35.6); MEAN CORPUSCULAR VOLUME 94.4 fL (75.5-95.3); MONOCYTES # (AUTO) 0.5 K/uL (2.0-10.0); MONOCYTES % (AUTO) 7.4 % (0.0-11.0); NEUTROPHILS # (AUTO) 6.1 K/uL (1.8-8.9); NEUTROPHILS % (AUTO) 82.6 % (38.5-71.5); PLATELET COUNT (AUTO) 238 K/uL (179-408); RED BLOOD CELL COUNT(AUTO) 4.02 MIL/uL (3.63-4.92); WHITE BLOOD COUNT (AUTO) 7.3 K/uL (3.8-11.8)
[2017-11-15] MEDS: DILTIAZEM HCL CD 120 MG CAP.SR.24H PO SCH (08:35)
[2017-11-15] MEDS: [UNRECOGNIZED DRUG - OTHER] INH SCH ×2 (08:37→20:54)
[2017-11-15 08:50] LABS: ALANINE AMINOTRANSFERASE 18 U/L (14-59); ALKALINE PHOSPHATASE 109 U/L (50-136); ASPARTATE AMINOTRANSFERASE 20 U/L (15-37); BILIRUBIN,TOTAL 0.4 mg/dL (0.2-1.0); CARBON DIOXIDE 28 mmol/L (21-32); CHLORIDE 109 mmol/L (98-107); CREATININE 0.7 mg/dL (0.6-1.3); GLUCOSE 110 mg/dL (74-106); MAGNESIUM 1.8 mg/dL (1.8-2.4); POTASSIUM 4.2 mmol/L (3.5-5.1); TOTAL PROTEIN, SERUM 5.2 g/dL (6.4-8.2); UREA NITROGEN, BLOOD 15 mg/dL (7-18)
[2017-11-15] MEDS ORDERED: GENTAMICIN SULFATE OPHT DROP 5 ML BOTTLE LEFTEYE SCH ×2 (09:00)
[2017-11-15] MEDS ORDERED: ELIQUIS 2.5 MG PO SCH (09:00)
[2017-11-15] MEDS: [UNRECOGNIZED DRUG - OTHER] LEFTEYE SCH ×4 (10:21→20:54)
[2017-11-15] MEDS: MOXIFLOXACIN 0.5% LEFTEYE SCH ×4 (10:25→23:42)
[2017-11-15] MEDS: [UNRECOGNIZED DRUG - OTHER] LEFTEYE SCH ×4 (10:26→20:55)
[2017-11-15 11:35] LABS: LYMPHOCYTES % (MANUAL) 7 % (20-40); MONOCYTES % (MANUAL) 6 % (2-10); NEUTROPHILS % (MANUAL) 87 % (42-75)
[2017-11-15 11:49] VITALS: BP 115/53
--- NOTE | 2017-11-15 12:00 | NUR ---
PATIENT RESTING WITH NO SIGNS OR SYMPTOMS OF PAIN/DISTRESS AT PRESENT, WILL CONTINUE TO MONITOR PATIENT
[2017-11-15] MEDS: HYDROCODONE/APAP 5-325MG TABLET PO PRN (13:16)
[2017-11-15 15:28] VITALS: BP 119/65
[2017-11-15] MEDS: ELIQUIS 2.5 MG PO SCH (17:08)
[2017-11-15] MEDS: MONTELUKAST SODIUM 10 MG TABLET PO SCH (17:08)
--- NOTE | 2017-11-15 17:16 | NUR ---
REPORT GIVEN TO RECEIVING RN
[2017-11-15] MEDS ORDERED: MONTELUKAST SODIUM 10 MG TABLET PO SCH (18:00)
--- NOTE | 2017-11-15 18:52 | NUR ---
pt administed eye drops from home without checking in with the nurse. did not administer as scheduled by the nurse. will endorse to wood patternmaker nurse
[2017-11-15 19:00] VITALS: BP 100/61
--- NOTE | 2017-11-15 19:10 | NUR ---
RECEIVED REPORT FROM TAMMY KIRKLAND. PATIENT SLEEPING DURING INITIAL ROUNDS. NO S/S OF PAIN/DISCOMFORTS NOTED. LEFT EYE DRESSING,DRY AND INTACT. SAFETY MEASURES AND FALL PRECAUTION MAINTAINED. CONTINUE CURRENT PLAN OF CARE.
[2017-11-15] MEDS: ATORVASTATIN 20 MG TABLET PO SCH (20:57)
[2017-11-15] MEDS ORDERED: ATORVASTATIN 20 MG TABLET PO SCH (21:00)
[2017-11-15] MEDS ORDERED: LEVOFLOXACIN 250MG /D5W 250 MG in PREMIXED 1 EACH IV SCH (21:00)
[2017-11-15] MEDS: GUAIFENESIN/CODEINE 5 ML LIQUID UDC PO PRN (22:17)
[2017-11-16] MEDS: methylPREDNISolone SOD SUCC 40 MG/ML VIAL IV SCH ×3 (06:05→22:33)
[2017-11-16] MEDS: MOXIFLOXACIN 0.5% LEFTEYE SCH ×3 (06:06→17:34)
[2017-11-16] MEDS: PANTOPRAZOLE SODIUM 40 MG TABLET.DR PO SCH (06:09)
--- NOTE | 2017-11-16 06:16 | NUR ---
SLEPT WELL. NO COMPLAINT PRESENTED ALL NIGHT. VERY COOPERATIVE WITH CARE. CONTINUE ON ATB IVPB ORDERED WITHOUT S/S OF ADVERSE REACTION NOTED. ALL NEEDS ATTENDED AND MET. NO SIGNIFICANT EVENT REPORTED ALL NIGHT. CONTINUE CURRENT PLAN OF CARE.
[2017-11-16] MEDS: [UNRECOGNIZED DRUG - OTHER] LEFTEYE SCH ×4 (08:06→20:31)
[2017-11-16] MEDS: [UNRECOGNIZED DRUG - OTHER] INH SCH ×2 (08:06→20:31)
[2017-11-16] MEDS: [UNRECOGNIZED DRUG - OTHER] LEFTEYE SCH ×4 (08:07→20:31)
[2017-11-16] MEDS: DILTIAZEM HCL CD 120 MG CAP.SR.24H PO SCH (08:08)
[2017-11-16] MEDS: ACETAMINOPHEN 325 MG TABLET PO PRN ×2 (08:59→17:41)
[2017-11-16 11:18] VITALS: BP 103/52
--- NOTE | 2017-11-16 11:40 | NUR ---
pt seen on rounding. pt continues to be alert and oriented. pt verbalizes needs and requested tylenol for pain on back 05/06. pt given tylenol. vitals stable. applied eye drops to left eye. no signs of infection. vitals stable. no so noted. pt tolerates room air. pt afebrile. pt continues to sleep. will continue to monitor.
[2017-11-16] MEDS: ELIQUIS 2.5 MG PO SCH ×2 (12:13→17:34)
[2017-11-16 15:32] VITALS: BP 120/63
[2017-11-16] MEDS: MONTELUKAST SODIUM 10 MG TABLET PO SCH (17:35)
--- NOTE | 2017-11-16 18:39 | NUR ---
pt stable throughout the day. pt applied eyedrops with assist. vitals stable. pt continues to be alert and oriented. pt continues to swallow pills whole without aspirating. no fever noted. lactic acid within normal limits. will endorse to hourly shift manager nurse.
--- NOTE | 2017-11-16 19:42 | NUR ---
RECEIVED SHIFT REPORT FROM DAY SHIFT NURSE. PATIENT RESTING COMFORTABLY IN BED. SPOKE TO PATIENT AND PATIENT'S GRANDSON ADMINISTERING NORCO DURING THE NIGHT FOR PAIN. PAIN MANAGEMENT WILL BE PROVIDED. PATIENT IN STABLE CONDITION, NO S/S OF DISTRESS. BED ALARM ON, CALL LIGHT WITHIN REACH. COMFORT/SAFETY WILL BE PROVIDED.
[2017-11-16 19:53] LABS: *BILIRUBIN,URIN NEGATIVE (NEGATIVE); *BLOOD, URINE NEGATIVE (NEGATIVE); *COLOR,URINE YELLOW (YELLOW); *KETONES,URINE NEGATIVE (NEGATIVE); *PROTEIN,URINE NEGATIVE (NEGATIVE); *UROBILINOGEN,URINE 0.2 E.U./dl (NORMAL); LEUKOCYTE ESTERASE ,URINE NEGATIVE (NEGATIVE); NITRITE, URINE NEGATIVE (NEGATIVE); PH,URINE 5.5 (5.0-8.0)
[2017-11-16 20:00] VITALS: BP 117/69
[2017-11-16] MEDS: HYDROCODONE/APAP 5-325MG TABLET PO PRN (20:33)
[2017-11-16] MEDS: ATORVASTATIN 20 MG TABLET PO SCH (20:33)
[2017-11-16 20:45] LABS: *CLARITY,URINE HAZY (CLEAR); UGLUCOSE 2+ (NEGATIVE)
[2017-11-16 20:46] LABS: CALCIUM OXALATE CRYSTALS,UR MANY /HPF (NONE SEEN); MUCUS,URINE MODERATE /LPF (0-FEW); SQUAMOUS EPITHELIAL CELL,UR MODERATE /HPF (NONE SEEN); WBC,URINE 0-3 /HPF (0-3)
[2017-11-16] MEDS: GUAIFENESIN/CODEINE 5 ML LIQUID UDC PO PRN (20:46)
[2017-11-16] MEDS ORDERED: LEVOFLOXACIN 500 MG/D5W 500 MG in PREMIXED 1 EACH IV SCH (21:00)
[2017-11-17] MEDS: MOXIFLOXACIN 0.5% LEFTEYE SCH ×5 (00:08→18:12)
[2017-11-17] MEDS: methylPREDNISolone SOD SUCC 40 MG/ML VIAL IV SCH ×3 (05:20→20:38)
[2017-11-17] MEDS: ACETAMINOPHEN 325 MG TABLET PO PRN ×2 (05:23→11:34)
[2017-11-17 05:29] VITALS: BP 134/62
[2017-11-17] MEDS: PANTOPRAZOLE SODIUM 40 MG TABLET.DR PO SCH (05:42)
--- NOTE | 2017-11-17 06:05 | NUR ---
PATIENT SLEPT THROUGH MAJORITY OF THE NIGHT. RESTING COMFORTABLY IN BED AT THE MOMENT. PAIN MANAGEMENT PROVIDED. IN STABLE CONDITION, NO S/S OF DISTRESS, VITAL SIGNS STABLE. BED IN LOCKED/LOW POSITION, SIDE RAILS UP X2, CALL LIGHT WITHIN REACH. PATIENT IS AMBULATORY. ABLE TO ASSIST SELF TO RESTROOM. BED ALARM IS ON. VERBALIZED TO PATIENT IMPORTANCE OF USING THE CALL LIGHT WHEN ASSISTANCE IS NEEDED. PATIENT VERBALIZES UNDERSTANDING.
[2017-11-17 07:25] LABS: HEMOGLOBIN 13.7 g/dL (10.9-14.3); LYMPHOCYTES # (AUTO) 0.5 K/uL (20.0-40.0); MEAN CORPUSCULAR VOLUME 94.7 fL (75.5-95.3); MONOCYTES # (AUTO) 0.5 K/uL (2.0-10.0)
[2017-11-17 07:32] LABS: CARBON DIOXIDE 29 mmol/L (21-32); CHLORIDE 105 mmol/L (98-107); GLUCOSE 177 mg/dL (74-106); PHOSPHOROUS 4.2 mg/dL (2.5-4.9); POTASSIUM 5.3 mmol/L (3.5-5.1); UREA NITROGEN, BLOOD 30 mg/dL (7-18)
[2017-11-17 07:37] LABS: BASOPHILS # (AUTO) 0.1 K/uL (0.0-8.0); BASOPHILS % (AUTO) 0.7 % (0.0-2.0); LYMPHOCYTES % (AUTO) 5.1 % (20.5-51.5); MEAN CORPUSCULAR HEMOGLOBIN 30.7 uug (24.7-32.8); MEAN CORPUSCULAR HGB CONC 32 g/dL (32.3-35.6); NEUTROPHILS # (AUTO) 9.1 K/uL (1.8-8.9); NEUTROPHILS % (AUTO) 89.2 % (38.5-71.5); PLATELET COUNT (AUTO) 265 K/uL (179-408); RED BLOOD CELL COUNT(AUTO) 4.47 MIL/uL (3.63-4.92)
[2017-11-17 07:40] LABS: HEMATOCRIT 42.4 % (31.2-41.9); WHITE BLOOD COUNT (AUTO) 10.2 K/uL (3.8-11.8)
[2017-11-17] MEDS: [UNRECOGNIZED DRUG - OTHER] INH SCH ×2 (08:28→20:37)
[2017-11-17] MEDS: ELIQUIS 2.5 MG PO SCH ×2 (08:33→16:32)
[2017-11-17] MEDS: [UNRECOGNIZED DRUG - OTHER] LEFTEYE SCH ×4 (08:33→20:38)
[2017-11-17] MEDS: [UNRECOGNIZED DRUG - OTHER] LEFTEYE SCH ×4 (08:33→20:37)
[2017-11-17] MEDS ORDERED: SODIUM POLYSTYRENE SULFONATE 15 G/60 ML LIQUID UDC PO ONE (09:00)
[2017-11-17] MEDS: DILTIAZEM HCL CD 120 MG CAP.SR.24H PO SCH (09:00)
[2017-11-17 11:34] VITALS: BP 131/66
[2017-11-17 12:44] LABS: BAND % (MANUAL) 2 % (0-10); LYMPHOCYTES % (MANUAL) 7 % (20-40); MONOCYTES % (MANUAL) 5 % (2-10); NEUTROPHILS % (MANUAL) 86 % (42-75)
[2017-11-17 15:34] VITALS: BP 133/73
[2017-11-17] MEDS: MONTELUKAST SODIUM 10 MG TABLET PO SCH (18:12)
--- NOTE | 2017-11-17 19:40 | NUR ---
PT RECEIVED IN BED, AWAKE. A/OX4. ABLE TO MAKE NEEDS KNOWN. V/S STABLE. IN NO ACUTE DISTRESS. NO C/O PAIN AT THIS TIME. IV INTACT AND PATENT. ON RA, TOLERATING WELL. AFEBRILE. PT SEEN WITH PATCH ON LEFT EYE. NO S/S OF INFECTION NOTED. SAFETY MEASURES IMPLEMENTED. CALL LIGHT WITHIN REACH.
[2017-11-17 20:00] VITALS: BP 123/69
[2017-11-17] MEDS: ATORVASTATIN 20 MG TABLET PO SCH (20:39)
[2017-11-17] MEDS ORDERED: LEVOFLOXACIN/D5W 250 MG in PREMIX 1 EA IV SCH (21:00)
[2017-11-18] MEDS: MOXIFLOXACIN 0.5% LEFTEYE SCH ×4 (00:45→17:18)
[2017-11-18 04:56] VITALS: BP 136/63
--- NOTE | 2017-11-18 06:09 | NUR ---
END OF SHIFT NOTES. PT SLEPT WELL THROUGHOUT SHIFT. IN STABLE CONDITION. IV ABX INFUSED. ALL NEEDS ATTENDED. SAFETY MAINTAINED. CALL LIGHT WITHIN REACH.
[2017-11-18 06:47] LABS: ALANINE AMINOTRANSFERASE 23 U/L (14-59); ALKALINE PHOSPHATASE 99 U/L (50-136); ASPARTATE AMINOTRANSFERASE 21 U/L (15-37); BILIRUBIN,TOTAL 0.3 mg/dL (0.2-1.0); CARBON DIOXIDE 30 mmol/L (21-32); CHLORIDE 107 mmol/L (98-107); CREATININE 0.8 mg/dL (0.6-1.3); GLUCOSE 145 mg/dL (74-106); MAGNESIUM 1.9 mg/dL (1.8-2.4); PHOSPHOROUS 4.3 mg/dL (2.5-4.9); POTASSIUM 4.2 mmol/L (3.5-5.1); TOTAL PROTEIN, SERUM 5.1 g/dL (6.4-8.2); UREA NITROGEN, BLOOD 34 mg/dL (7-18)
[2017-11-18] MEDS: PANTOPRAZOLE SODIUM 40 MG TABLET.DR PO SCH (07:08)
[2017-11-18 07:11] LABS: BASOPHILS # (AUTO) 0.1 K/uL (0.0-8.0); BASOPHILS % (AUTO) 0.6 % (0.0-2.0); HEMOGLOBIN 13.8 g/dL (10.9-14.3); LYMPHOCYTES # (AUTO) 0.4 K/uL (20.0-40.0); LYMPHOCYTES % (AUTO) 4.4 % (20.5-51.5); MEAN CORPUSCULAR HGB CONC 33 g/dL (32.3-35.6); MEAN CORPUSCULAR VOLUME 94.1 fL (75.5-95.3); MONOCYTES # (AUTO) 0.8 K/uL (2.0-10.0); MONOCYTES % (AUTO) 8.2 % (0.0-11.0); NEUTROPHILS # (AUTO) 8.5 K/uL (1.8-8.9); NEUTROPHILS % (AUTO) 86.8 % (38.5-71.5); PLATELET COUNT (AUTO) 227 K/uL (179-408); RED BLOOD CELL COUNT(AUTO) 4.46 MIL/uL (3.63-4.92); WHITE BLOOD COUNT (AUTO) 9.8 K/uL (3.8-11.8)
[2017-11-18] MEDS: [UNRECOGNIZED DRUG - OTHER] LEFTEYE SCH ×3 (08:35→17:32)
[2017-11-18] MEDS: ELIQUIS 2.5 MG PO SCH ×2 (08:35→17:18)
[2017-11-18] MEDS: DILTIAZEM HCL CD 120 MG CAP.SR.24H PO SCH (08:36)
[2017-11-18] MEDS: GUAIFENESIN/CODEINE 5 ML LIQUID UDC PO PRN (08:36)
[2017-11-18] MEDS: [UNRECOGNIZED DRUG - OTHER] INH SCH (08:37)
[2017-11-18] MEDS: [UNRECOGNIZED DRUG - OTHER] LEFTEYE SCH ×3 (08:38→17:31)
[2017-11-18] MEDS: methylPREDNISolone SOD SUCC 40 MG/ML VIAL IV SCH (08:38)
[2017-11-18 09:34] LABS: BAND % (MANUAL) 3 % (0-10); LYMPHOCYTES % (MANUAL) 4 % (20-40); METAMYELOCYTES % 1 % (0-1); MONOCYTES % (MANUAL) 8 % (2-10); NEUTROPHILS % (MANUAL) 84 % (42-75)
--- NOTE | 2017-11-18 10:30 | NUR ---
ASSUMED CARE OF THIS PATIENT AT THIS TIME SHE IS ALERT AND ORIENTED RESTING IN HER ROOM WITH NO S/SOF PAIN SHE IS ON ROOM AIR WITH LEFT EYE PATCH WITH EYE DROPS IN PROGRESS ORDERED.RIGHT HAND WITH HEPLOCK INTACT WITH NO S/S OF INFILTERATION AT THIS TIME.MADE COMFORTABLE AND WILL CONTINUE TO OBSERVE.
--- NOTE | 2017-11-18 10:30 | NUR ---
REPORT GIVEN TO FAB. PT. ALERT AND ORIENTEDX4. AWAKE IN BED AND NO ACUTE DISTRESS. CALL LIGHT IN REACH.
[2017-11-18 11:38] VITALS: BP 116/76
--- NOTE | 2017-11-18 13:21 | NUR ---
ORDER NOTED TO DISCHARGE PATIENT HOME TODAY MD STATED WILL COMPLETE THE DISCHARGE PAPERS SOON COMES BACK.
[2017-11-18 16:15] VITALS: BP 137/52
--- NOTE | 2017-11-18 16:31 | NUR ---
DISCHARGE PLANNING STILL AWAITING FOR DR REES TO COMPLETE THE DISCHARGE PROCESS.
[2017-11-18] MEDS ORDERED: LEVO500T2 PO (16:51)
[2017-11-18] MEDS ORDERED: DEXT15SY3 PO (16:51)
[2017-11-18] MEDS: MONTELUKAST SODIUM 10 MG TABLET PO SCH (17:17)
--- NOTE | 2017-11-18 18:10 | NUR ---
PATIENT DISCHARGED PICKED UP BY HER DAUGHTER MARA IN SATISFACTORY CONDITION WITH DISCHARGE INSTRUCTIONS AND PRESCRIPTIONS AND PATIENT INSTRUCTED TO CALL HER PRIMARY DOCTOR FOR A FOLLOW UP APPOINTMENT WITHIN THE NEXT ONE TO TWO WEEKS AND TO CONTINUE WITH HER ANTIBIOTICS ORDERED AND SHE EXPRESSED UNDERSTANDING.PATIENTS DAUGHTER MARA STATED THAT PATIENT HAS AN OPEN CASE WITH [facility] AND THAT SHE ALREADY NOTIFIED THEM.
== END 2017-11-18 18:10 | disposition home health service (06) | DRG 190 ==
LOC: ER 13:35 → TELE 20:00 → MED 11-15 20:50
PROVIDERS: ADMIT Internal Medicine; ATTEND Internal Medicine
DX: J44.0 Chronic obstructive pulmonary disease with (acute) lower respiratory infection (principal); E43 Unspecified severe protein-calorie malnutrition; E87.2 Acidosis; I11.0 Hypertensive heart disease with heart failure; I48.0 Paroxysmal atrial fibrillation; I50.32 Chronic diastolic (congestive) heart failure; Z68.1 Body mass index [BMI] 19.9 or less, adult; J44.1 Chronic obstructive pulmonary disease with (acute) exacerbation; K44.9 Diaphragmatic hernia without obstruction or gangrene; J20.8 Acute bronchitis due to other specified organisms; K12.1 Other forms of stomatitis; Z90.710 Acquired absence of both cervix and uterus; Z95.0 Presence of cardiac pacemaker; L12.1 Cicatricial pemphigoid; Z85.820 Personal history of malignant melanoma of skin
CPT/HCPCS: 36415; 70030-TC; 71010; 83605; 83735; 84100; 85025; 85730; 87040; 87086; 93005; A4663; J0456; J0696; J1956; J2650; J2920; J3490; J7030; J7040; J7050

== ENCOUNTER 2017-12-01 12:52 | Emergency (ER) | payer MEDICARE ==
[~2017-12-01] VITALS: Ht 152.4 cm; Wt 42.2 kg
[~2017-12-01 12:52] MED LIST changes: -BESI5DRO EACHEYE; -CYCL30DR EACHEYE; +DEXT15SY3 PO; -GENT5DRO4 LEFTEYE; +LEVO500T2 PO
[2017-12-01] MEDS ORDERED: ALBUTEROL SULFATE 2.5 MG/3 ML NEBU NEB ONE ×3 (13:30)
[2017-12-01] MEDS ORDERED: IPRATROPIUM BROMIDE 0.5 MG/2.5 ML NEBU NEB ONE ×3 (13:30)
[2017-12-01] MEDS ORDERED: methylPREDNISolone SOD SUCC 125 MG/2 ML VIAL IV ONE (13:30)
[2017-12-01] MEDS ORDERED: MAGNESIUM SULFATE 2 GM in IV DEXTROSE 5% 100 ML IV ONE (13:30)
[2017-12-01] MEDS ORDERED: MAGNESIUM SULFATE 1 GM/2 ML VIAL ONE (14:09)
[2017-12-01] MEDS ORDERED: methylPREDNISolone SOD SUCC 125 MG/2 ML VIAL ONE (14:09)
[2017-12-01] MEDS ORDERED: IPRATROPIUM BROMIDE 0.5 MG/2.5 ML NEBU ONE ×2 (14:17→14:49)
[2017-12-01] MEDS ORDERED: ALBUTEROL SULFATE 2.5 MG/ 0.5 ML NEBU ONE (14:17)
[2017-12-01] MEDS ORDERED: ALBUTEROL SULFATE 2.5 MG/3 ML NEBU ONE (14:45)
--- NOTE | 2017-12-01 17:49 | NUR ---
Patient discharged to home in stable conditon with daughter. Written and verbal after care instructions given. Patient and daughter verbalizes understanding of instructions. Stressed follow up with pmd or return to ER for worsening s/s.
[2017-12-01 17:50] VITALS: BP 126/67
== END 2017-12-01 17:51 | disposition home or self-care (01) ==
LOC: ER 12:52
DX: I11.0 Hypertensive heart disease with heart failure (principal); I50.9 Heart failure, unspecified; J44.9 Chronic obstructive pulmonary disease, unspecified; M19.90 Unspecified osteoarthritis, unspecified site; I48.91 Unspecified atrial fibrillation; K85.90 Acute pancreatitis without necrosis or infection, unspecified; Z79.01 Long term (current) use of anticoagulants; Z95.0 Presence of cardiac pacemaker
CPT/HCPCS: 71045; A4663; J2930; J3475; J3590

== ENCOUNTER 2017-12-04 11:22 | Inpatient (IN) | payer MEDICARE ==
[~2017-12-04] VITALS: Ht 152.4 cm; Wt 42.8 kg
[~2017-12-04 11:22] MED LIST changes: -LEVO500T2 PO
[2017-12-04] MEDS ORDERED: IV NORMAL SALINE 500 ML BAG IV ONE (11:45)
[2017-12-04] MEDS ORDERED: IPRATROPIUM BROMIDE 0.5 MG/2.5 ML NEBU NEB ONE (11:45)
[2017-12-04] MEDS ORDERED: ALBUTEROL SULFATE 2.5 MG/3 ML NEBU CONT NEB ONE (11:45)
[2017-12-04 11:56] LABS: BASOPHILS % (AUTO) 0.3 % (0.0-2.0); HEMATOCRIT 39.4 % (31.2-41.9); HEMOGLOBIN 13.2 g/dL (10.9-14.3); LYMPHOCYTES # (AUTO) 0.3 K/uL (20.0-40.0); LYMPHOCYTES % (AUTO) 2.9 % (20.5-51.5); MEAN CORPUSCULAR HEMOGLOBIN 30.7 uug (24.7-32.8); MEAN CORPUSCULAR HGB CONC 33 g/dL (32.3-35.6); MEAN CORPUSCULAR VOLUME 91.9 fL (75.5-95.3); MONOCYTES # (AUTO) 0.7 K/uL (2.0-10.0); MONOCYTES % (AUTO) 6.6 % (0.0-11.0); NEUTROPHILS # (AUTO) 9.1 K/uL (1.8-8.9); NEUTROPHILS % (AUTO) 90.2 % (38.5-71.5); PLATELET COUNT (AUTO) 218 K/uL (179-408); RED BLOOD CELL COUNT(AUTO) 4.28 MIL/uL (3.63-4.92); WHITE BLOOD COUNT (AUTO) 10.1 K/uL (3.8-11.8)
[2017-12-04] MEDS ORDERED: IPRATROPIUM BROMIDE 0.5 MG/2.5 ML NEBU ONE (12:00)
[2017-12-04] MEDS ORDERED: ALBUTEROL SULFATE 2.5 MG/3 ML NEBU ONE (12:00)
[2017-12-04 12:03] LABS: CARBON DIOXIDE 28 mmol/L (21-32); CHLORIDE 105 mmol/L (98-107); CREATININE 0.7 mg/dL (0.6-1.3); GLUCOSE 151 mg/dL (74-106); POTASSIUM 4.1 mmol/L (3.5-5.1); UREA NITROGEN, BLOOD 32 mg/dL (7-18)
[2017-12-04] MEDS ORDERED: AZITHROMYCIN IV 500 MG in IV DEXTROSE 5% 250 ML IV ONE (12:15)
[2017-12-04] MEDS ORDERED: CEFTRIAXONE 1 G in IV DEXTROSE 5% 50 ML IV ONE (12:15)
[2017-12-04] MEDS ORDERED: AZITHROMYCIN 500 MG VIAL IV ONE (13:02)
[2017-12-04] MEDS ORDERED: CEFTRIAXONE 1 G VIAL ONE (13:02)
--- NOTE | 2017-12-04 13:31 | NUR ---
PT WAS EVALUATED BY DR RODRIGUEZ. PT WAS MEDICATED ACCORDING TO ER MD ORDERS. PT TOLERated to medication without complications. report was given to learning and development associate, pt was transferd to room #216.
[2017-12-04 14:00] VITALS: BP 131/69
--- NOTE | 2017-12-04 14:00 | NUR ---
Received this admission from ER per drea, 77 yo female, with the chief complaint of shortness of breath, diagnosis of Bronchitis. Transferred to be comfortably. Routine admission care rendered. Awake, alert, oriented x 4, able to move all extremities on purpose. O2 at 4L/NC with O2 sat of 93-94%. SOB on exertion noted. Saline to RFA, pain noted with infusion of Zithromax IV from ER. Saline lock restarted to left wrist. Leila Cardoso MENTAL HEALTH COORDINATOR informed of admission with orders.
[2017-12-04 14:11] LABS: BAND % (MANUAL) 1 % (0-10); LYMPHOCYTES % (MANUAL) 1 % (20-40); MONOCYTES % (MANUAL) 7 % (2-10); NEUTROPHILS % (MANUAL) 91 % (42-75)
[2017-12-04 15:37] VITALS: BP 135/69
[2017-12-04] MEDS ORDERED: MAGNESIUM HYDROXIDE 30 ML LIQUID UDC PO PRN (16:00)
[2017-12-04] MEDS ORDERED: FUROSEMIDE 40 MG/4 ML VIAL IV ONE (16:00)
[2017-12-04] MEDS ORDERED: ZOLPIDEM 5 MG TABLET PO PRN (16:00)
[2017-12-04] MEDS ORDERED: HYDROCODONE/APAP 5-325MG TABLET PO PRN (16:00)
[2017-12-04] MEDS ORDERED: Z GUARD REMEDY PASTE 57 GM TUBE TOP PRN (16:00)
[2017-12-04] MEDS ORDERED: ONDANSETRON 4 MG/2 ML VIAL IV PRN (16:00)
[2017-12-04] MEDS ORDERED: LEVOFLOXACIN 750MG/D5W 750 MG in PREMIXED 1 EACH IV SCH (16:15)
[2017-12-04] MEDS ORDERED: MOXI3DRO LEFTEYE (17:51)
[2017-12-04] MEDS: prednisoLONE ACET 1% OPHT DROP 5 ML BOTTLE LEFTEYE SCH ×2 (17:54→21:58)
[2017-12-04] MEDS: LEVOFLOXACIN 750MG/D5W 750 MG in PREMIXED 1 EACH IV SCH (17:55)
[2017-12-04] MEDS: MONTELUKAST SODIUM 10 MG TABLET PO SCH (17:55)
--- NOTE | 2017-12-04 18:25 | NUR ---
Luis at bedside, encouraging patient to eat. Lasix IV given, commode placed at bedside. Endorsed for further care
[2017-12-04] MEDS: ALBUTEROL SULFATE 2.5 MG/ 0.5 ML NEBU NEB SCH (19:11)
[2017-12-04] MEDS: IPRATROPIUM BROMIDE 0.5 MG/2.5 ML NEBU NEB SCH (19:11)
--- NOTE | 2017-12-04 19:30 | NUR ---
Received patient laying in bed. She is receiving breathing tx from RT at the moment. A&O x 4. No acute distress. TELE SR but goes to Afib and Aflutter then, back to SR. Patient is usually on 02 4L NC. IV Abx infusing. Commode at bedside. Safety initiated. Call light within reach. Bed is in low and locked position. Room is kept clutter free. Will continue to monitor. Instructed patient to call for assistance to the restroom or the commode. Verbalized understanding.
[2017-12-04] MEDS ORDERED: FLUTICASONE/SALMETEROL 100/50 1 INH DISK.W.DEV INH SCH (21:00)
[2017-12-04] MEDS: ATORVASTATIN 20 MG TABLET PO SCH (21:57)
[2017-12-04] MEDS: methylPREDNISolone SOD SUCC 40 MG/ML VIAL IV SCH (21:58)
[2017-12-04] MEDS: ACETYLCYSTEINE 10% 4ML VIAL NEB SCH (22:59)
[2017-12-04] MEDS: ALBUTEROL SULFATE 2.5 MG/3 ML NEBU NEB PRN (22:59)
[2017-12-04 23:10] VITALS: BP 113/72
[2017-12-05] VITALS: BP_SYST 110; BP_SYST 134; BP_DIAS 55; BP_DIAS 71
[2017-12-05 04:00] VITALS: BP 111/64
[2017-12-05] MEDS: methylPREDNISolone SOD SUCC 40 MG/ML VIAL IV SCH ×3 (05:36→21:27)
--- NOTE | 2017-12-05 05:57 | NUR ---
Patient slept t/o shift. No acute distress noted. No C/O sob or pain. Patient remains with O2 4L NC. Safety and comfort measures maintained t/o shift. Vital signs stable. All meds given as ordered. All needs met.
[2017-12-05] MEDS: IPRATROPIUM BROMIDE 0.5 MG/2.5 ML NEBU NEB SCH ×4 (07:35→19:16)
[2017-12-05] MEDS: ACETYLCYSTEINE 10% 4ML VIAL NEB SCH ×3 (07:38→22:34)
[2017-12-05] MEDS: ALBUTEROL SULFATE 2.5 MG/ 0.5 ML NEBU NEB SCH ×4 (07:38→19:16)
--- NOTE | 2017-12-05 08:00 | NUR ---
Discussed plan of care with pt re: fall precaution and pain management. Pt also showed her eye drops that she uses daily. Will reconcile eye drop medications with MD. Pt agreeable with plan of care. Pt has an eye patch on her left eye as prescribed by her penal officer. Call light is within reach.
[2017-12-05 08:42] LABS: BASOPHILS % (AUTO) 0.6 % (0.0-2.0); HEMATOCRIT 38.6 % (31.2-41.9); HEMOGLOBIN 12.8 g/dL (10.9-14.3); LYMPHOCYTES # (AUTO) 0.4 K/uL (20.0-40.0); LYMPHOCYTES % (AUTO) 6.3 % (20.5-51.5); MEAN CORPUSCULAR HEMOGLOBIN 30.7 uug (24.7-32.8); MEAN CORPUSCULAR HGB CONC 33 g/dL (32.3-35.6); MEAN CORPUSCULAR VOLUME 92.6 fL (75.5-95.3); MONOCYTES # (AUTO) 0.3 K/uL (2.0-10.0); MONOCYTES % (AUTO) 4.4 % (0.0-11.0); NEUTROPHILS # (AUTO) 6.1 K/uL (1.8-8.9); NEUTROPHILS % (AUTO) 88.7 % (38.5-71.5); PLATELET COUNT (AUTO) 212 K/uL (179-408); RED BLOOD CELL COUNT(AUTO) 4.17 MIL/uL (3.63-4.92); WHITE BLOOD COUNT (AUTO) 6.9 K/uL (3.8-11.8)
[2017-12-05 08:57] LABS: CARBON DIOXIDE 33 mmol/L (21-32); CREATININE 0.9 mg/dL (0.6-1.3); GLUCOSE 188 mg/dL (74-106); PHOSPHOROUS 3.8 mg/dL (2.5-4.9); UREA NITROGEN, BLOOD 30 mg/dL (7-18)
[2017-12-05 09:06] LABS: CHLORIDE 103 mmol/L (98-107); POTASSIUM 5.3 mmol/L (3.5-5.1)
--- NOTE | 2017-12-05 10:45 | NUR ---
Dr cota gave ok for pt to take her own meds for eye drops. Call light is within reach.
[2017-12-05 11:02] VITALS: BP 118/56
[2017-12-05 11:22] LABS: LYMPHOCYTES % (MANUAL) 7 % (20-40); MONOCYTES % (MANUAL) 1 % (2-10); NEUTROPHILS % (MANUAL) 92 % (42-75)
[2017-12-05] MEDS: prednisoLONE ACET 1% OPHT DROP 5 ML BOTTLE LEFTEYE SCH ×4 (11:41→21:28)
[2017-12-05] MEDS: DILTIAZEM HCL CD 120 MG CAP.SR.24H PO SCH (11:41)
[2017-12-05] MEDS: LOTEPREDNOL 0.5% OPHT DROP 5 ML BOTTLE LEFTEYE SCH ×4 (11:42→21:28)
[2017-12-05] MEDS: FLUTICASONE/VILANTEROL 1 EACH BLST.W.DEV INH SCH (13:08)
[2017-12-05] MEDS: MOXIFLOXACIN LEFTEYE SCH ×3 (13:08→21:28)
[2017-12-05 15:12] VITALS: BP 129/66
--- NOTE | 2017-12-05 16:00 | NUR ---
Noted right arm skin tare noted. Pt states that it was from the tape when it got taken off. Cleansed skin tare with NS then applied hydrogel and covered with mepilex. Wound care nurse ordered for eval. Call light is within reach. Pt refused to have pix taken at the moment.
[2017-12-05] MEDS: MONTELUKAST SODIUM 10 MG TABLET PO SCH (18:16)
--- NOTE | 2017-12-05 18:30 | NUR ---
Plan of care effective. NO fall noted this shift. Call light is within reach.
[2017-12-05 20:00] VITALS: BP 141/66
[2017-12-05] MEDS: ATORVASTATIN 20 MG TABLET PO SCH (21:27)
[2017-12-05] MEDS: ALBUTEROL SULFATE 2.5 MG/3 ML NEBU NEB PRN (22:34)
--- NOTE | 2017-12-06 05:19 | NUR ---
end of shift report:patient alert, oriented x4, no respiratory distress, mild sob noted on exertion,o2 sat 94% on o2 3l/m via nasal cannula, received breathing treatment from Kate,effective,instructed patient to call for assistance,BSC provided,patient slept well through the night,needs attended.
[2017-12-06 05:57] VITALS: BP 121/70
[2017-12-06] MEDS: methylPREDNISolone SOD SUCC 40 MG/ML VIAL IV SCH ×3 (06:43→21:37)
--- NOTE | 2017-12-06 07:10 | NUR ---
RECEIVED PATIENT ASLEEP, LYING ON BED ON A SEMI- CUMMINGS'S POSITION WITH NO SOB, DISTRESS OR DISCOMFORTS ON OXYGEN AT 2 L/MIN VIA NASAL CANNULA. CALL LIGHT PLACED WITHIN REACH. ALL NEEDS WERE ATTENDED AND ANTICIPATED. WILL CONTINUE TO MONITOR.
[2017-12-06] MEDS: ALBUTEROL SULFATE 2.5 MG/ 0.5 ML NEBU NEB SCH ×4 (08:02→19:34)
[2017-12-06] MEDS: IPRATROPIUM BROMIDE 0.5 MG/2.5 ML NEBU NEB SCH ×5 (08:03→19:36)
[2017-12-06] MEDS: ACETYLCYSTEINE 10% 4ML VIAL NEB SCH ×3 (08:03→23:23)
[2017-12-06] MEDS: prednisoLONE ACET 1% OPHT DROP 5 ML BOTTLE LEFTEYE SCH ×4 (08:44→21:39)
[2017-12-06] MEDS: MOXIFLOXACIN LEFTEYE SCH ×4 (08:44→21:39)
[2017-12-06] MEDS: LOTEPREDNOL 0.5% OPHT DROP 5 ML BOTTLE LEFTEYE SCH ×4 (08:44→21:39)
[2017-12-06] MEDS: DILTIAZEM HCL CD 120 MG CAP.SR.24H PO SCH (08:45)
[2017-12-06] MEDS: FLUTICASONE/VILANTEROL 1 EACH BLST.W.DEV INH SCH (09:00)
[2017-12-06 09:19] LABS: BASOPHILS % (AUTO) 0.2 % (0.0-2.0); HEMOGLOBIN 12.3 g/dL (10.9-14.3); LYMPHOCYTES # (AUTO) 0.3 K/uL (20.0-40.0); LYMPHOCYTES % (AUTO) 3.6 % (20.5-51.5); MEAN CORPUSCULAR HEMOGLOBIN 30.7 uug (24.7-32.8); MEAN CORPUSCULAR HGB CONC 33 g/dL (32.3-35.6); MONOCYTES # (AUTO) 0.8 K/uL (2.0-10.0); MONOCYTES % (AUTO) 9.3 % (0.0-11.0); NEUTROPHILS # (AUTO) 7.9 K/uL (1.8-8.9); NEUTROPHILS % (AUTO) 86.9 % (38.5-71.5); PLATELET COUNT (AUTO) 261 K/uL (179-408); RED BLOOD CELL COUNT(AUTO) 4.02 MIL/uL (3.63-4.92)
[2017-12-06 09:41] LABS: WHITE BLOOD COUNT (AUTO) 9.1 K/uL (3.8-11.8)
[2017-12-06 09:56] LABS: ALANINE AMINOTRANSFERASE 24 U/L (14-59); ALKALINE PHOSPHATASE 108 U/L (50-136); ASPARTATE AMINOTRANSFERASE 13 U/L (15-37); BILIRUBIN,TOTAL 0.2 mg/dL (0.2-1.0); CARBON DIOXIDE 32 mmol/L (21-32); CHLORIDE 105 mmol/L (98-107); CREATININE 0.7 mg/dL (0.6-1.3); GLUCOSE 216 mg/dL (74-106); MAGNESIUM 1.9 mg/dL (1.8-2.4); PHOSPHOROUS 2.5 mg/dL (2.5-4.9); POTASSIUM 4.7 mmol/L (3.5-5.1); UREA NITROGEN, BLOOD 40 mg/dL (7-18)
[2017-12-06 11:56] VITALS: BP 126/73
--- NOTE | 2017-12-06 12:00 | NUR ---
PATIENT AWAKE, ALERT AND ORIENTED LYING ON BED ON A HIGH CUMMINGS'S POSITION WITH NO SOB, DISTRESS OR DISCOMFORTS. ABLE TO MAKE NEEDS KNOWN. ALL NEEDS WERE ATTENDED AND ANTICIPATED. PATIENT WAS ASSISTED TO USE THE BEDSIDE COMMODE. ABLE TO URINATE WITHOUT DIFFICULTY. NO SOB NOTED. ASSISTED BACK THE PATIENT TO THE BED. KEPT COMFORTABLE. WILL CONTINUE TO MONITOR
[2017-12-06 13:55] LABS: BAND % (MANUAL) 2 % (0-10); LYMPHOCYTES % (MANUAL) 5 % (20-40); MONOCYTES % (MANUAL) 6 % (2-10); NEUTROPHILS % (MANUAL) 87 % (42-75)
--- NOTE | 2017-12-06 15:00 | NUR ---
PATIENT RESTING ON BED WITH NO SOB,DISTRESS OR ANY MOANING.EASILY AROUSED. ALL NEEDS WERE ATTENDED AND ANTICIPATED. CALL LIGHT PLACED WITHIN REACH. PATIENT WAS ENCOURAGED TO USE THE CALL LIGHT WHENEVER ASSISTANCE IS NEEDED. WILL CONTINUE TO MONITOR.
[2017-12-06 15:54] VITALS: BP 123/63
[2017-12-06] MEDS ORDERED: APIXABAN 5 MG TABLET PO ONE (17:00)
[2017-12-06] MEDS: LEVOFLOXACIN 750MG/D5W 750 MG in PREMIXED 1 EACH IV SCH (17:46)
[2017-12-06] MEDS: MONTELUKAST SODIUM 10 MG TABLET PO SCH (18:05)
--- NOTE | 2017-12-06 18:15 | NUR ---
PATIENT AWAKE, ALERT AND ORIENTED, LYING ON A HIGH CUMMINGS'S POSITION WITH NO SOB, DISTRESS OR DISCOMFORTS. PATIENT DENIES ANY PAIN. CALL LIGHT PLACED WITHIN HER REACH, ALL NEEDS WERE ATTENDED AND ANTICIPATED. WILL CONTINUE TO MONITOR.
[2017-12-06] MEDS: ALBUTEROL SULFATE 2.5 MG/3 ML NEBU NEB PRN ×4 (19:31→23:23)
[2017-12-06 21:00] VITALS: BP 132/73
[2017-12-06] MEDS: ATORVASTATIN 20 MG TABLET PO SCH (21:37)
[2017-12-06] MEDS: MAG HYDROX/AL HYDROX/SIMETH 30 ML LIQUID UDC PO PRN (22:24)
[2017-12-06] MEDS ORDERED: MAG HYDROX/AL HYDROX/SIMETH 30 ML LIQUID UDC ONE (22:28)
[2017-12-06] MEDS: IPRATROPIUM BROMIDE 0.5 MG/2.5 ML NEBU NEB PRN (23:23)
[2017-12-07 04:00] VITALS: BP 131/70
[2017-12-07] MEDS: ALBUTEROL SULFATE 2.5 MG/3 ML NEBU NEB PRN (04:06)
[2017-12-07] MEDS: IPRATROPIUM BROMIDE 0.5 MG/2.5 ML NEBU NEB PRN (04:06)
[2017-12-07 05:47] VITALS: BP 131/70
[2017-12-07] MEDS: methylPREDNISolone SOD SUCC 40 MG/ML VIAL IV SCH ×3 (06:21→21:14)
[2017-12-07 07:06] LABS: CARBON DIOXIDE 34 mmol/L (21-32); CHLORIDE 103 mmol/L (98-107); CREATININE 0.7 mg/dL (0.6-1.3); GLUCOSE 184 mg/dL (74-106); PHOSPHOROUS 3.6 mg/dL (2.5-4.9); POTASSIUM 4.7 mmol/L (3.5-5.1); UREA NITROGEN, BLOOD 31 mg/dL (7-18)
[2017-12-07 07:15] LABS: BASOPHILS % (AUTO) 0.2 % (0.0-2.0); HEMOGLOBIN 12.3 g/dL (10.9-14.3); LYMPHOCYTES # (AUTO) 0.2 K/uL (20.0-40.0); LYMPHOCYTES % (AUTO) 3.2 % (20.5-51.5); MEAN CORPUSCULAR HEMOGLOBIN 30.7 uug (24.7-32.8); MEAN CORPUSCULAR HGB CONC 33 g/dL (32.3-35.6); MEAN CORPUSCULAR VOLUME 92.1 fL (75.5-95.3); MONOCYTES # (AUTO) 0.9 K/uL (2.0-10.0); MONOCYTES % (AUTO) 11.5 % (0.0-11.0); NEUTROPHILS # (AUTO) 6.5 K/uL (1.8-8.9); NEUTROPHILS % (AUTO) 85.1 % (38.5-71.5); PLATELET COUNT (AUTO) 254 K/uL (179-408); RED BLOOD CELL COUNT(AUTO) 4.02 MIL/uL (3.63-4.92); WHITE BLOOD COUNT (AUTO) 7.7 K/uL (3.8-11.8)
--- NOTE | 2017-12-07 07:20 | NUR ---
RECEIVED REPORT FROM GREIGE GOODS EXAMINER NURSE, PATIENT IN BED AWAKE, REPORTS CONGESTION AND COUGH. PATIENT REPORTS AN OVERALL FEELING OF FATIGUE. BED IN LOW POSITION, SIDE RAILS UP X2.
[2017-12-07] MEDS: IPRATROPIUM BROMIDE 0.5 MG/2.5 ML NEBU NEB SCH ×4 (07:35→20:22)
[2017-12-07] MEDS: ALBUTEROL SULFATE 2.5 MG/ 0.5 ML NEBU NEB SCH ×4 (07:37→20:22)
[2017-12-07] MEDS: ACETYLCYSTEINE 10% 4ML VIAL NEB SCH ×3 (07:37→23:30)
[2017-12-07] MEDS: FLUTICASONE/VILANTEROL 1 EACH BLST.W.DEV INH SCH (09:00)
[2017-12-07] MEDS: LOTEPREDNOL 0.5% OPHT DROP 5 ML BOTTLE LEFTEYE SCH ×4 (09:03→21:09)
[2017-12-07] MEDS: MOXIFLOXACIN LEFTEYE SCH ×4 (09:04→21:09)
[2017-12-07] MEDS: DILTIAZEM HCL CD 120 MG CAP.SR.24H PO SCH (09:04)
[2017-12-07] MEDS: prednisoLONE ACET 1% OPHT DROP 5 ML BOTTLE LEFTEYE SCH ×4 (09:04→21:09)
[2017-12-07] MEDS: GUAIFENESIN/DEXTROMETHORPHAN 5 ML UDC PO PRN (11:36)
[2017-12-07 12:00] VITALS: BP 124/65
[2017-12-07] MEDS: GUAIFENESIN LA 600 MG TABLET.SA PO SCH ×2 (13:22→21:14)
[2017-12-07] MEDS: MAG HYDROX/AL HYDROX/SIMETH 30 ML LIQUID UDC PO PRN (13:23)
[2017-12-07] MEDS: ACETAMINOPHEN 325 MG TABLET PO PRN (13:23)
[2017-12-07 16:00] VITALS: BP 141/71
[2017-12-07] MEDS: ELIQUIS PO SCH (18:17)
[2017-12-07] MEDS: MONTELUKAST SODIUM 10 MG TABLET PO SCH (18:17)
[2017-12-07] MEDS: METFORMIN HCL 500 MG TABLET PO SCH (18:17)
[2017-12-07 19:00] VITALS: BP 155/80
[2017-12-07] MEDS: ATORVASTATIN 20 MG TABLET PO SCH (21:14)
[2017-12-07] MEDS ORDERED: INSULIN REGULAR, HUMAN 300 UNIT/3 ML VIAL SQ PRN (23:00)
[2017-12-07] MEDS ORDERED: DEXTROSE 50% 50 ML DISP.SYRIN IV PRN (23:00)
[2017-12-08] MEDS: IPRATROPIUM BROMIDE 0.5 MG/2.5 ML NEBU NEB PRN (03:30)
[2017-12-08] MEDS: ALBUTEROL SULFATE 2.5 MG/3 ML NEBU NEB PRN (03:30)
[2017-12-08 04:00] VITALS: BP 145/86
[2017-12-08] MEDS: methylPREDNISolone SOD SUCC 40 MG/ML VIAL IV SCH (05:10)
--- NOTE | 2017-12-08 06:36 | NUR ---
PATIENT ASLEEP IN BED AT THIS TIME. NO S/S DISTRESS NOTED. DENIES SOB OR PAIN. ABLE TO WALK TO BATHROOM INDEPENDENTLY. ALL NEEDS ATTENDED TO. CALL LIGHT AND PERSONAL BELONGINGS WITHIN REACH.
[2017-12-08 06:51] LABS: BASOPHILS % (AUTO) 0.2 % (0.0-2.0); HEMOGLOBIN 12.3 g/dL (10.9-14.3); LYMPHOCYTES # (AUTO) 0.2 K/uL (20.0-40.0); MEAN CORPUSCULAR HEMOGLOBIN 30.6 uug (24.7-32.8); MEAN CORPUSCULAR HGB CONC 33 g/dL (32.3-35.6); MONOCYTES # (AUTO) 0.9 K/uL (2.0-10.0); MONOCYTES % (AUTO) 12.6 % (0.0-11.0); NEUTROPHILS # (AUTO) 6.1 K/uL (1.8-8.9); NEUTROPHILS % (AUTO) 84.2 % (38.5-71.5); PLATELET COUNT (AUTO) 231 K/uL (179-408); RED BLOOD CELL COUNT(AUTO) 4.03 MIL/uL (3.63-4.92); WHITE BLOOD COUNT (AUTO) 7.2 K/uL (3.8-11.8)
[2017-12-08 07:17] LABS: ALANINE AMINOTRANSFERASE 25 U/L (14-59); ALKALINE PHOSPHATASE 95 U/L (50-136); ASPARTATE AMINOTRANSFERASE 17 U/L (15-37); BILIRUBIN,TOTAL 0.3 mg/dL (0.2-1.0); CARBON DIOXIDE 36 mmol/L (21-32); CHLORIDE 104 mmol/L (98-107); CREATININE 0.6 mg/dL (0.6-1.3); GLUCOSE 206 mg/dL (74-106); MAGNESIUM 2.1 mg/dL (1.8-2.4); PHOSPHOROUS 3.3 mg/dL (2.5-4.9); POTASSIUM 4.8 mmol/L (3.5-5.1); TOTAL PROTEIN, SERUM 5.6 g/dL (6.4-8.2); UREA NITROGEN, BLOOD 32 mg/dL (7-18)
--- NOTE | 2017-12-08 07:20 | NUR ---
received report from sewer repairer nurse, patient in bed awake, no evidence of distress noted at this time, bed in low position, side rails up x2.
[2017-12-08] MEDS ORDERED: BLOOD SUGAR DIAGNOSTIC 1 EACH STRIP VI SCH (07:30)
[2017-12-08] MEDS: ALBUTEROL SULFATE 2.5 MG/ 0.5 ML NEBU NEB SCH ×3 (08:32→15:30)
[2017-12-08] MEDS: ACETYLCYSTEINE 10% 4ML VIAL NEB SCH ×2 (08:33→15:30)
[2017-12-08] MEDS: IPRATROPIUM BROMIDE 0.5 MG/2.5 ML NEBU NEB SCH ×3 (08:33→15:30)
[2017-12-08] MEDS: METFORMIN HCL 500 MG TABLET PO SCH (08:40)
[2017-12-08] MEDS: DILTIAZEM HCL CD 120 MG CAP.SR.24H PO SCH (08:41)
[2017-12-08] MEDS: ELIQUIS PO SCH (08:41)
[2017-12-08] MEDS: prednisoLONE ACET 1% OPHT DROP 5 ML BOTTLE LEFTEYE SCH ×2 (08:42→13:02)
[2017-12-08] MEDS: FLUTICASONE/VILANTEROL 1 EACH BLST.W.DEV INH SCH (08:42)
[2017-12-08] MEDS: LOTEPREDNOL 0.5% OPHT DROP 5 ML BOTTLE LEFTEYE SCH ×2 (08:42→13:02)
[2017-12-08] MEDS: GUAIFENESIN LA 600 MG TABLET.SA PO SCH (08:42)
[2017-12-08] MEDS: MOXIFLOXACIN LEFTEYE SCH ×2 (08:42→13:02)
[2017-12-08] MEDS: GUAIFENESIN/DEXTROMETHORPHAN 5 ML UDC PO PRN (08:50)
[2017-12-08 10:10] LABS: BAND % (MANUAL) 4 % (0-10); LYMPHOCYTES % (MANUAL) 4 % (20-40); METAMYELOCYTES % 2 % (0-1); MONOCYTES % (MANUAL) 14 % (2-10); MYELOCYTES % 2 % (0-0); NEUTROPHILS % (MANUAL) 74 % (42-75)
[2017-12-08] MEDS ORDERED: METF500T4 PO (10:42)
[2017-12-08] MEDS ORDERED: ZOLP5TAB8 PO (10:42)
[2017-12-08] MEDS ORDERED: methylPREDNISolone SOD SUCC IV (10:42)
[2017-12-08] MEDS ORDERED: ALBU2.5V7 NEB (10:42)
[2017-12-08] MEDS ORDERED: MAG30ORA PO (10:42)
[2017-12-08] MEDS ORDERED: ACET100V5 NEB (10:42)
[2017-12-08] MEDS ORDERED: ALBU2.5V13 NEB (10:42)
[2017-12-08] MEDS ORDERED: MAGN400O6 PO (10:42)
[2017-12-08] MEDS ORDERED: LEVO500T2 PO (10:42)
[2017-12-08] MEDS ORDERED: GUAI600T53 PO (10:42)
[2017-12-08] MEDS ORDERED: IPRA0.2S6 NEB ×2 (10:42)
[2017-12-08] MEDS ORDERED: PANT40TA2 PO (10:46)
[2017-12-08] MEDS ORDERED: MULT1TAB73 PO (10:46)
[2017-12-08] MEDS ORDERED: CALC-7 PO (10:46)
[2017-12-08] MEDS ORDERED: APIX5TAB PO (10:55)
[2017-12-08 11:04] LABS: ABG BASE EXCESS 9.7 mmol/L; ABG HCO3 33.9 mmol/L; ABG PCO2 44.1 mmHg (35.0-45.0); ABG PH 7.504 (7.350-7.450); ABG PO2 69.9 mmHg (75.0-100.0); ABG SITE LEFT RADIAL; COHb 0.9 % (0.5-1.5); MetHb 0.1 % (0.0-1.5); O2Hb 93.7 % (94.0-97.0); VENT MODE Nasal Cannula
[2017-12-08 11:43] VITALS: BP 120/71
[2017-12-08] MEDS: ACETAMINOPHEN 325 MG TABLET PO PRN (13:50)
--- NOTE | 2017-12-08 14:40 | NUR ---
Patient was given discharge education and report called to [facility]. Pictures of wound taken and placed in chart. Patient being transported by ambulance.
[2017-12-08] MEDS ORDERED: LEVOFLOXACIN 750MG/D5W 750 MG in PREMIXED 1 EACH IV SCH (15:00)
== END 2017-12-08 14:40 | DRG 190 ==
LOC: ER 11:22 → TELE 13:33 → MED 12-05 12:14
PROVIDERS: ATTEND Nurse Practitioner Acute Care
DX: J44.0 Chronic obstructive pulmonary disease with (acute) lower respiratory infection (principal); E43 Unspecified severe protein-calorie malnutrition; D89.89 Other specified disorders involving the immune mechanism, not elsewhere classified; E87.2 Acidosis; I11.0 Hypertensive heart disease with heart failure; I48.0 Paroxysmal atrial fibrillation; I50.32 Chronic diastolic (congestive) heart failure; J84.10 Pulmonary fibrosis, unspecified; B96.89 Other specified bacterial agents as the cause of diseases classified elsewhere; E09.9 Drug or chemical induced diabetes mellitus without complications; Z68.1 Body mass index [BMI] 19.9 or less, adult; J20.8 Acute bronchitis due to other specified organisms; J44.1 Chronic obstructive pulmonary disease with (acute) exacerbation; Z87.01 Personal history of pneumonia (recurrent); L12.1 Cicatricial pemphigoid; Z80.0 Family history of malignant neoplasm of digestive organs; K44.9 Diaphragmatic hernia without obstruction or gangrene; N20.0 Calculus of kidney; K57.30 Diverticulosis of large intestine without perforation or abscess without bleeding; Z77.22 Contact with and (suspected) exposure to environmental tobacco smoke (acute) (chronic); I70.0 Atherosclerosis of aorta; Z85.820 Personal history of malignant melanoma of skin; R09.1 Pleurisy; Z79.899 Other long term (current) drug therapy; Z95.0 Presence of cardiac pacemaker; Z90.710 Acquired absence of both cervix and uterus; I49.3 Ventricular premature depolarization; T38.0X5A Adverse effect of glucocorticoids and synthetic analogues, initial encounter; Y92.89 Other specified places as the place of occurrence of the external cause; R09.02 Hypoxemia
CPT/HCPCS: 36415; 36600; 70030-TC; 71045; 74230; 83605; 83735; 84100; 85025; 87040; 87400; 92526; 92610; 93005; 94640; 94664; A4663; J0456; J0696; J1815; J1940; J1956; J2650; J2920; J3490; J3590; J7030

== ENCOUNTER 2017-12-15 12:42 | Inpatient (IN) | payer MEDICARE ==
[~2017-12-15] VITALS: Ht 157.5 cm; Wt 48.1 kg
[~2017-12-15 12:42] MED LIST changes: +ACET100V5 NEB; -ALBU18HF2 INH; +ALBU2.5V13 NEB; +ALBU2.5V7 NEB; +APIX5TAB PO; +CALC-7 PO; -ELIQUIS PO; +GUAI600T53 PO; +IPRA0.2S6 NEB; +LEVO500T2 PO; +MAG30ORA PO; +MAGN400O6 PO; +METF500T4 PO; +MULT1TAB73 PO; +PANT40TA2 PO; -PRED20TA PO; +ZOLP5TAB8 PO; +methylPREDNISolone SOD SUCC IV
[2017-12-15] MEDS ORDERED: LEVOFLOXACIN 750MG/D5W 150 ML IV ONE ×2 (13:00→13:33)
[2017-12-15] MEDS ORDERED: ALBUTEROL SULFATE 2.5 MG/3 ML NEBU CONT NEB ONE (13:00)
[2017-12-15] MEDS ORDERED: PIPERACILLIN SODIUM/TAZOBACTAM 3.375 G in IV DEXTROSE 5% 50 ML IV ONE (13:00)
[2017-12-15] MEDS ORDERED: IV NORMAL SALINE 500 ML BAG IV ONE ×2 (13:00→21:00)
[2017-12-15] MEDS ORDERED: IPRATROPIUM BROMIDE 0.5 MG/2.5 ML NEBU NEB ONE (13:00)
--- NOTE | 2017-12-15 13:10 | NUR ---
PT PLACED ON BI PAP BY RT
[2017-12-15] MEDS ORDERED: ALBUTEROL SULFATE 2.5 MG/3 ML NEBU ONE ×2 (13:11→13:12)
[2017-12-15] MEDS ORDERED: IPRATROPIUM BROMIDE 0.5 MG/2.5 ML NEBU ONE (13:11)
[2017-12-15 13:22] LABS: ABG BASE EXCESS 0.9 mmol/L; ABG HCO3 26.8 mmol/L; ABG PCO2 47.8 mmHg (35.0-45.0); ABG PH 7.367 (7.350-7.450); ABG PO2 59.9 mmHg (75.0-100.0); ABG SITE LEFT RADIAL; ABG TOTAL HEMOGLOBIN 14.1 G/dL (12.0-16.0); COHb 0.9 % (0.5-1.5); MetHb 0.4 % (0.0-1.5); O2Hb 88.3 % (94.0-97.0)
[2017-12-15 13:24] LABS: BASOPHILS # (AUTO) 0.1 K/uL (0.0-8.0); BASOPHILS % (AUTO) 0.3 % (0.0-2.0); HEMOGLOBIN 13.5 g/dL (10.9-14.3); MONOCYTES # (AUTO) 0.1 K/uL (2.0-10.0); NEUTROPHILS # (AUTO) 29.6 K/uL (1.8-8.9)
[2017-12-15 13:26] LABS: HEMATOCRIT 41.4 % (31.2-41.9); LYMPHOCYTES # (AUTO) 0.2 K/uL (20.0-40.0); LYMPHOCYTES % (AUTO) 0.8 % (20.5-51.5); MEAN CORPUSCULAR HEMOGLOBIN 30.2 uug (24.7-32.8); MEAN CORPUSCULAR HGB CONC 33 g/dL (32.3-35.6); MEAN CORPUSCULAR VOLUME 92.4 fL (75.5-95.3); MONOCYTES % (AUTO) 0.2 % (0.0-11.0); NEUTROPHILS % (AUTO) 98.7 % (38.5-71.5); PLATELET COUNT (AUTO) 231 K/uL (179-408); RED BLOOD CELL COUNT(AUTO) 4.48 MIL/uL (3.63-4.92)
[2017-12-15] MEDS ORDERED: PIPERACILLIN/TAZOBACTAM/D5W 50 ML IV ONE ×2 (13:33→23:48)
[2017-12-15] MEDS ORDERED: VANCOMYCIN IV 200 ML ONE (13:33)
[2017-12-15 13:49] LABS: CARBON DIOXIDE 26 mmol/L (21-32); CREATININE 2.6 mg/dL (0.6-1.3)
[2017-12-15 13:50] LABS: ALANINE AMINOTRANSFERASE 32 U/L (14-59); ALKALINE PHOSPHATASE 122 U/L (50-136); ASPARTATE AMINOTRANSFERASE 46 U/L (15-37); BILIRUBIN,DIRECT 0.1 mg/dL (0.0-0.2); BILIRUBIN,TOTAL 0.4 mg/dL (0.2-1.0); TOTAL PROTEIN, SERUM 5.6 g/dL (6.4-8.2)
[2017-12-15 13:52] LABS: BAND % (MANUAL) 11 % (0-10); LYMPHOCYTES % (MANUAL) 3 % (20-40); METAMYELOCYTES % 2 % (0-1); MONOCYTES % (MANUAL) 3 % (2-10); NEUTROPHILS % (MANUAL) 81 % (42-75)
[2017-12-15 14:07] LABS: CHLORIDE 99 mmol/L (98-107); GLUCOSE 211 mg/dL (74-106)
[2017-12-15] MEDS: VANCOMYCIN IV 1,000 MG in IV DEXTROSE 5% 250 ML IV ONE ×2 (14:14→15:18)
[2017-12-15] MEDS ORDERED: IV NORMAL SALINE 1000 ML BAG IV ONE (14:15)
[2017-12-15 14:16] LABS: POTASSIUM 6.3 mmol/L (3.5-5.1); UREA NITROGEN, BLOOD 94 mg/dL (7-18)
[2017-12-15] MEDS ORDERED: SODIUM POLYSTYRENE SULFONATE 15 G/60 ML LIQUID UDC PO ONE (14:30)
[2017-12-15] MEDS ORDERED: ASCO500T9 PO (14:54)
[2017-12-15] MEDS ORDERED: MAGN400O6 PO (14:54)
[2017-12-15] MEDS ORDERED: LOTE5DRO4 LEFTEYE (14:54)
[2017-12-15] MEDS ORDERED: BISA10SU12 RC (14:54)
[2017-12-15] MEDS ORDERED: NA P133E RC (14:54)
[2017-12-15] MEDS ORDERED: BLOO-140 IN (14:54)
[2017-12-15] MEDS ORDERED: CALC-555 PO (14:54)
[2017-12-15] MEDS ORDERED: SODIUM POLYSTYRENE SULFONATE ENEMA 30 G/120 ML BOTTLE RC ONE ×2 (15:11→15:20)
[2017-12-15] MEDS ORDERED: NOREPINEPHRINE BITARTRATE 4 MG in IV DEXTROSE 5% 250 ML IV ONE (15:30)
--- NOTE | 2017-12-15 16:03 | NUR ---
FAMILY MEMBERS AT BEDSIDE, COMMUNICATING WITH PT. PT ABLE TO UNDERSTAND AND NOD HER HEAD TO RESPOND.
--- NOTE | 2017-12-15 16:53 | NUR ---
PERINEAL HYGIENE PROVIDED. REDNESS AND SMALL SKIN TEAR NITUCED IN THE LABIAL AND COCYX AREA.
[2017-12-15 18:03] LABS: *BILIRUBIN,URIN NEGATIVE (NEGATIVE); *BLOOD, URINE NEGATIVE (NEGATIVE); *CLARITY,URINE SLIGHTLY CLOUDY (CLEAR); *COLOR,URINE YELLOW (YELLOW); *KETONES,URINE NEGATIVE (NEGATIVE); *PROTEIN,URINE 1+ (NEGATIVE); *UROBILINOGEN,URINE 0.2 E.U./dl (NORMAL); LEUKOCYTE ESTERASE ,URINE NEGATIVE (NEGATIVE); NITRITE, URINE NEGATIVE (NEGATIVE); PH,URINE 5.5 (5.0-8.0); UGLUCOSE NEGATIVE (NEGATIVE)
[2017-12-15 18:12] LABS: MUCUS,URINE MODERATE /LPF (0-FEW); SQUAMOUS EPITHELIAL CELL,UR FEW /HPF (NONE SEEN); URINE AMORPHOUS URATE MODERATE /HPF; WBC,URINE 0-3 /HPF (0-3)
--- NOTE | 2017-12-15 19:14 | NUR ---
PT RESTING AT THIS TIME. FAMILY MEMBERS AT BEDSIDE THE WHOLE ER STAY.
--- NOTE | 2017-12-15 19:15 | NUR ---
LEVOPHED WAS HELD PER PT BP PER MD ORDER.
--- NOTE | 2017-12-15 19:26 | NUR ---
pt received from Georges MUNOZ. pt resting in bed on bipap. family at bedside. vs during report wnl. pending admission.
[2017-12-15] MEDS ORDERED: LIDOCAINE 5% PATCH TD PRN (21:00)
--- NOTE | 2017-12-15 21:08 | NUR ---
report given to Kaur MUNOZ in CCU
[2017-12-15 21:40] VITALS: BP 105/51
--- NOTE | 2017-12-15 21:40 | NUR ---
ADMITTED FROM ER VIA GURNEY, ON BIPAP W/ SETTINGS OF IPAP-12/EPAP-5, RATE-14, FIO2-100%, W/ O2 SAT OF 94%. PT. RESPONDING TO VERBAL STIMULI BUT LETHARGIC, FOLLOW TO SIMPLE COMMAND. PICC LINE ON TIGIST INTACT & PATENT. NS 500CC INFUSING ON ONE PORT. REPOTIONED IN BED W/ HOB ELEVATED. DAUGHTER & GRAND SON CAME & TALKED TO PT.
--- NOTE | 2017-12-15 21:44 | NUR ---
PT WITH RT ASSIST WITH BI/PAP @ 21:30 , TO CCU # 3, PT ON 100% NON REBREATHER MASK ON TRANSPORT, THEN PT PLACED BACK ON BI/PAP WITH MASK, DOING WELL, PT IS SOMEWHAT SEMI ALERT AND TALKING. Kaity ARMENDARIZ RCP Addendum: 12/15/17 at 2147 by ALEKSANDRA ARMENDARIZ RT Amended: Links added.
[2017-12-15 22:00] VITALS: BP 95/55
[2017-12-15] MEDS ORDERED: DEXTROSE 50% 50 ML DISP.SYRIN IV PRN (22:00)
[2017-12-15] MEDS ORDERED: IPRATROPIUM BROMIDE 0.5 MG/2.5 ML NEBU NEB PRN (22:00)
[2017-12-15] MEDS ORDERED: BISACODYL 10 MG SUPP.RECT RC PRN (22:00)
[2017-12-15] MEDS ORDERED: OSELTAMIVIR PHOSPHATE 75 MG CAPSULE PO SCH (22:00)
[2017-12-15] MEDS ORDERED: ACETAMINOPHEN 325 MG TABLET PO PRN (22:00)
[2017-12-15] MEDS ORDERED: MORPHINE SULFATE 2 MG/1 ML DISP.SYRIN IV PRN (22:00)
[2017-12-15] MEDS ORDERED: ALBUTEROL SULFATE 2.5 MG/3 ML NEBU NEB PRN (22:00)
[2017-12-15] MEDS ORDERED: ONDANSETRON 4 MG/2 ML VIAL IV PRN (22:00)
[2017-12-15 22:30] VITALS: BP 99/57
[2017-12-15 23:00] VITALS: BP 94/45
[2017-12-15] MEDS: methylPREDNISolone SOD SUCC 40 MG/ML VIAL IV SCH (23:08)
[2017-12-15] MEDS ORDERED: methylPREDNISolone SOD SUCC 40 MG/ML VIAL ONE (23:09)
[2017-12-15] MEDS ORDERED: OSELTAMIVIR PHOSPHATE 75 MG CAPSULE ONE ×2 (23:10→23:48)
[2017-12-15 23:30] VITALS: BP 96/43
[2017-12-15] MEDS: PIPERACILLIN/TAZOBACTAM/D5W 2.25 G in PREMIXED 1 EACH IV SCH (23:45)
[2017-12-16] VITALS (66 sets, daily range): BP systolic 45–137; BP diastolic 26–100
--- NOTE | 2017-12-16 00:40 | NUR ---
BP IS LOW-81/39, CALLED JUAN LAWRENCE FOR ORDER.
[2017-12-16] MEDS: NOREPINEPHRINE BITARTRATE 8 MG in IV DEXTROSE 5% 500 ML IV PRN ×2 (00:50→06:36)
--- NOTE | 2017-12-16 00:50 | NUR ---
STARTED ON LEVOPHED DRIP @ 5MCQ/MIN. VIA PICC LINE ON TIGIST.
[2017-12-16] MEDS ORDERED: NOREPINEPHRINE BITARTRATE 4 MG/4 ML VIAL IV ONE ×3 (01:01→06:39)
[2017-12-16] MEDS: IV NS 1000 ML 1,000 ML IV PRN ×2 (01:12→13:13)
[2017-12-16] MEDS ORDERED: ETOMIDATE 20 MG/10 ML VIAL IV ONE ×2 (02:50→20:09)
[2017-12-16] MEDS ORDERED: ROCURONIUM BROMIDE 50 MG/5 ML VIAL IV ONE ×2 (02:50→20:09)
--- NOTE | 2017-12-16 03:30 | NUR ---
PLACED PT BACK ON BIPAP. RN AWARE.
--- NOTE | 2017-12-16 04:30 | NUR ---
CALLED Jacklyn LAWRENCE RE: LOW BP W/ LEVOPHED DRIP ON MAX W/ ORDER OF NEOSYNEPHRINE DRIP.
[2017-12-16] MEDS ORDERED: PHENYLEPHRINE 10 MG/1 ML VIAL ONE ×2 (04:40→06:25)
[2017-12-16] MEDS: PHENYLEPHRINE IV 20 MG in IV DEXTROSE 5% 250 ML IV PRN ×4 (04:46→09:06)
--- NOTE | 2017-12-16 04:46 | NUR ---
STARTED ON NEOSYNEPHRINE DRIP @ 100MCQ/MIN.
--- NOTE | 2017-12-16 05:00 | NUR ---
PT. FOLLOWS TO SIMPLE COMMAND, PUPIL 4MM UNEQUAL SLUGGISHLY REACTIVE.
[2017-12-16] MEDS: PIPERACILLIN/TAZOBACTAM/D5W 2.25 G in PREMIXED 1 EACH IV SCH (06:00)
[2017-12-16] MEDS ORDERED: PIPERACILLIN/TAZOBACTAM/D5W 50 ML IV ONE (06:11)
[2017-12-16] MEDS ORDERED: Z GUARD REMEDY PASTE 57 GM TUBE TOP PRN (06:15)
[2017-12-16] MEDS: methylPREDNISolone SOD SUCC 40 MG/ML VIAL IV SCH ×2 (06:42→13:07)
[2017-12-16] MEDS ORDERED: methylPREDNISolone SOD SUCC 40 MG/ML VIAL ONE (06:59)
--- NOTE | 2017-12-16 07:22 | NUR ---
CALLED DR REES RE: CHANGED OF NEURO STATUS, AWAITING FOR THE CALL BACK.
--- NOTE | 2017-12-16 07:28 | NUR ---
REQUESTED A STAT ABG DUE TO CHANGED OF NEURO @0700. CALLED ER MD DR ARMENDARIZ TO INTUBATE PT. AFTER ABG RESULTS.
[2017-12-16 07:34] LABS: ABG HCO3 18.2 mmol/L; ABG PCO2 94.7 mmHg (35.0-45.0); ABG PH 6.901 (7.350-7.450); ABG PO2 77.4 mmHg (75.0-100.0); ABG SITE LEFT BRACHIAL; ABG TOTAL HEMOGLOBIN 12.4 G/dL (12.0-16.0); COHb 0.6 % (0.5-1.5); MetHb 0.5 % (0.0-1.5); O2Hb 89.2 % (94.0-97.0); VENT MODE BIPAP
--- NOTE | 2017-12-16 07:55 | NUR ---
[address] Parada here for emergent intubation according to ABG results. 0755 intubated patient tolerated well with no complications administered 20mg of etomidate and 10mg of rocc. with additional orders received.
--- NOTE | 2017-12-16 07:55 | NUR ---
DR REES CALLED BACK UPDATED OF PT. CONDITION & NOTIFIED OF INTUBATION.
[2017-12-16] MEDS ORDERED: VASOPRESSIN 50 UNIT in IV DEXTROSE 5% 500 ML IV PRN (08:15)
[2017-12-16] MEDS: IPRATROPIUM BROMIDE 0.5 MG/2.5 ML NEBU NEB SCH ×3 (08:23→15:21)
[2017-12-16] MEDS: ALBUTEROL SULFATE 2.5 MG/ 0.5 ML NEBU NEB SCH ×3 (08:23→15:21)
[2017-12-16] MEDS: BLOOD SUGAR DIAGNOSTIC 1 EACH STRIP VI SCH ×2 (08:50→12:18)
[2017-12-16] MEDS: INSULIN REGULAR, HUMAN 300 UNIT/3 ML VIAL SQ PRN ×2 (08:59→12:19)
[2017-12-16] MEDS ORDERED: Z GUARD REMEDY PASTE 57 GM TUBE TOP SCH (09:00)
[2017-12-16] MEDS ORDERED: FAMOTIDINE. 20 MG/2 ML VIAL IV SCH (09:00)
[2017-12-16] MEDS ORDERED: APIXABAN 5 MG TABLET PO SCH ×2 (09:00→17:00)
[2017-12-16] MEDS ORDERED: FLUTICASONE/SALMETEROL 100/50 1 INH DISK.W.DEV INH SCH (09:00)
[2017-12-16 09:04] LABS: ABG BASE EXCESS -15.7 mmol/L; ABG PCO2 48.3 mmHg (35.0-45.0); ABG PO2 95.6 mmHg (75.0-100.0); ABG SITE LEFT BRACHIAL; ABG TOTAL HEMOGLOBIN 12.4 G/dL (12.0-16.0); COHb 0.3 % (0.5-1.5); MetHb 0.2 % (0.0-1.5); O2Hb 96.5 % (94.0-97.0); VENT MODE VENT - A/C; VT, ABG 550 mL
[2017-12-16] MEDS: prednisoLONE ACET 1% OPHT DROP 5 ML BOTTLE LEFTEYE SCH ×2 (09:07→12:17)
[2017-12-16] MEDS ORDERED: MORPHINE SULFATE 4 MG/1 ML DISP.SYRIN IV PRN (09:15)
--- NOTE | 2017-12-16 09:36 | NUR ---
dr radford called report given on critical ABG no orders received. sk
--- NOTE | 2017-12-16 10:27 | NUR ---
dr radford here to assess pt report given orders received. pt stable with family at bedside.
[2017-12-16] MEDS ORDERED: NOREPINEPHRINE BITARTRATE IV PRN (10:30)
[2017-12-16] MEDS ORDERED: DEXTROSE 5% IV PRN (10:30)
[2017-12-16 10:31] LABS: MONOCYTES # (AUTO) 0.1 K/uL (2.0-10.0); RED BLOOD CELL COUNT(AUTO) 3.89 MIL/uL (3.63-4.92)
[2017-12-16] MEDS ORDERED: NOREPINEPHRINE BITARTRATE 16 MG in IV DEXTROSE 5% 500 ML IV PRN (10:45)
[2017-12-16] MEDS ORDERED: SODIUM BICARBONATE 8.4% 50 MEQ/50 ML DISP.SYRIN IV ONE (10:45)
[2017-12-16] MEDS: PHENYLEPHRINE IV 80 MG in IV DEXTROSE 5% 250 ML IV PRN ×2 (10:46→14:44)
[2017-12-16 10:56] LABS: ALANINE AMINOTRANSFERASE 4474 U/L (14-59); ALKALINE PHOSPHATASE 186 U/L (50-136); BILIRUBIN,TOTAL 0.5 mg/dL (0.2-1.0); CARBON DIOXIDE 16 mmol/L (21-32); CHLORIDE 93 mmol/L (98-107); MAGNESIUM 2.3 mg/dL (1.8-2.4); TOTAL PROTEIN, SERUM 3.5 g/dL (6.4-8.2)
[2017-12-16] MEDS ORDERED: APIXABAN 5 MG TABLET PO ONE (11:00)
[2017-12-16] MEDS ORDERED: FLUTICASONE/VILANTEROL 1 EACH BLST.W.DEV INH SCH (11:00)
--- NOTE | 2017-12-16 11:06 | NUR ---
all critical labs (k+, glucose, phos., albumin, lactic acid, troponin) reported to dr radford orders received. report also reported to dr radford orders received.
[2017-12-16 11:08] LABS: MEAN CORPUSCULAR HGB CONC 30 g/dL (32.3-35.6)
[2017-12-16 11:09] LABS: HEMATOCRIT 38.4 % (31.2-41.9); HEMOGLOBIN 11.6 g/dL (10.9-14.3); MEAN CORPUSCULAR HEMOGLOBIN 29.9 uug (24.7-32.8); WHITE BLOOD COUNT (AUTO) 26.8 K/uL (3.8-11.8)
[2017-12-16 11:10] LABS: EOSINOPHILS # (AUTO) 0.3 K/uL (0.0-0.7); EOSINOPHILS % (AUTO) 1.1 % (0.0-7.0); LYMPHOCYTES # (AUTO) 0.7 K/uL (20.0-40.0); LYMPHOCYTES % (AUTO) 2.5 % (20.5-51.5); MONOCYTES % (AUTO) 0.3 % (0.0-11.0); NEUTROPHILS # (AUTO) 25.7 K/uL (1.8-8.9); NEUTROPHILS % (AUTO) 96.1 % (38.5-71.5); POTASSIUM 7.2 mmol/L (3.5-5.1)
[2017-12-16 11:11] LABS: GLUCOSE 452 mg/dL (74-106); PHOSPHOROUS 10.2 mg/dL (2.5-4.9); UREA NITROGEN, BLOOD 91 mg/dL (7-18)
[2017-12-16 11:12] LABS: MEAN CORPUSCULAR VOLUME 98.7 fL (75.5-95.3); PLATELET COUNT (AUTO) 134 K/uL (179-408)
[2017-12-16 11:34] LABS: ASPARTATE AMINOTRANSFERASE > 4000 U/L (15-37)
[2017-12-16] MEDS ORDERED: DOPamine IV DRIP 250 ML IV PRN (11:45)
[2017-12-16] MEDS ORDERED: DOPamine IV DRIP 800 MG in IV DEXTROSE 5% 250 ML IV PRN (11:45)
[2017-12-16] MEDS ORDERED: PIPERACILLIN/TAZOBACTAM/D5W 2.25 G in PREMIXED 1 EACH IV SCH (12:00)
[2017-12-16 12:08] LABS: BAND % (MANUAL) 25 % (0-10); LYMPHOCYTES % (MANUAL) 2 % (20-40); METAMYELOCYTES % 6 % (0-1); MONOCYTES % (MANUAL) 1 % (2-10); MYELOCYTES % 3 % (0-0); NEUTROPHILS % (MANUAL) 63 % (42-75)
[2017-12-16 12:20] LABS: ABG BASE EXCESS -15.4 mmol/L; ABG HCO3 12.5 mmol/L; ABG PCO2 36.5 mmHg (35.0-45.0); ABG PH 7.151 (7.350-7.450); ABG PO2 99.2 mmHg (75.0-100.0); ABG SITE LEFT BRACHIAL; COHb 0.3 % (0.5-1.5); MetHb 0.4 % (0.0-1.5); O2Hb 96.5 % (94.0-97.0); VENT MODE VENT - A/C; VT, ABG 500 mL
--- NOTE | 2017-12-16 12:25 | NUR ---
Clinical pharmacy note-Vancomycin dosing per pharmacy Subjective: To start Vancomycin dosing on this 77 year old female patient for pneumonia(HCAP) Objective: BUN 94 (12/15) Scr 2.6(12/15) WBC 30.0(12/15) Vancomycin random 15.2 on am labs(1 gram given in ER yesterday at 1518). Assessment/Plan: Vancomycin 1gram x1 will be given today at 1300. Since renal function is unstable, will continue to dose per fall-off random level. Rx will decide time for next random level tomorrow once am labs are available for renal function. Will continue to follow.
[2017-12-16] MEDS ORDERED: DEXTROSE 50% 50 ML DISP.SYRIN IV ONE (12:30)
[2017-12-16] MEDS ORDERED: INSULIN REGULAR, HUMAN 300 UNIT/3 ML VIAL IV ONE (12:30)
[2017-12-16] MEDS ORDERED: DEXTROSE 50% 50 ML DISP.SYRIN IV PRN (12:30)
[2017-12-16] MEDS ORDERED: BLOOD SUGAR DIAGNOSTIC 1 EACH STRIP VI SCH (12:30)
[2017-12-16] MEDS ORDERED: INSULIN REGULAR, HUMAN 300 UNIT/3 ML VIAL SQ PRN (12:30)
[2017-12-16] MEDS ORDERED: VANCOMYCIN IV 1 G in PREMIXED 0 EACH IV ONE (13:00)
[2017-12-16] MEDS ORDERED: LEVOFLOXACIN 750MG/D5W 750 MG in PREMIXED 1 EACH IV SCH (13:00)
--- NOTE | 2017-12-16 13:30 | NUR ---
dr cota here to assess pt report given orders received. family at bedside.
--- NOTE | 2017-12-16 14:05 | NUR ---
dr walker here to assess pt report given family at bedside orders received.
[2017-12-16] MEDS ORDERED: SODIUM POLYSTYRENE SULFONATE 15 G/60 ML LIQUID UDC PO ONE (15:00)
[2017-12-16] MEDS ORDERED: BUMETANIDE INJ 8 MG in IV DEXTROSE 5% 48 ML IV ONE (15:00)
[2017-12-16] MEDS ORDERED: BUMETANIDE 1 MG/4 ML VIAL IV ONE (15:00)
--- NOTE | 2017-12-16 15:28 | NUR ---
PT WAS INTUBATED THIS MORNING POST ABG. PT IS TOLERATING VENT SETTINGS WELL. AC 30, Vt 500, +8, 100% FIO2. 7.5 ETT IS PATENT AND SECURED WITH ANCHOR FAST AT 21CM LIP LINE. HAS MINIMAL AMOUNT OF THIN WHITE SECRETIONS. ALARMS ARE ON AND AUDIBLE, BVM AT BEDSIDE. WILL CONTINUE TO MONITOR.
--- NOTE | 2017-12-16 16:30 | NUR ---
Dr. Vasquez present in the unit and updated of pt's condition. had a meeting with family who remains at bedside. After the meeting code status changed to DNR.
[2017-12-16 16:32] LABS: CARBON DIOXIDE 12 mmol/L (21-32); CHLORIDE 90 mmol/L (98-107); CREATININE 3.2 mg/dL (0.6-1.3)
[2017-12-16 16:35] LABS: GLUCOSE 609 mg/dL (74-106); POTASSIUM 7.6 mmol/L (3.5-5.1); UREA NITROGEN, BLOOD 91 mg/dL (7-18)
--- NOTE | 2017-12-16 16:35 | NUR ---
K7.6 BUn 91 Lactic Acid 11.2. glucose [address] Pedro Sheikh present, and aware.
--- NOTE | 2017-12-16 16:58 | NUR ---
At this time Dr. Vasquez called as requested by pt's sons and daughters and Cam Sneed who informed Dr. Vasquez of their decision to stop treatment at this time.
--- NOTE | 2017-12-16 17:10 | NUR ---
all family in room agreed to stop all life support called dr cota and confirmed all of families wishes. orders received.
--- NOTE | 2017-12-16 17:12 | NUR ---
A call to [facility] and report given to Charu patient rule out due to sepsis and age. Case # [id number] received with recommendations to call with the time of .
[2017-12-16] MEDS ORDERED: MORPHINE SULFATE 4 MG/1 ML DISP.SYRIN IV ONE (17:15)
[2017-12-16] MEDS ORDERED: MORPHINE SULFATE 2 MG/1 ML DISP.SYRIN IV ONE (17:15)
--- NOTE | 2017-12-16 17:33 | NUR ---
all life support stopped patient has no heart beat confirmed by stethoscope two RN's rody RN and valentina RT and charger operator helper at bedside to extubate patient all of family at beside.
--- NOTE | 2017-12-16 17:35 | NUR ---
PT WAS TERMINALLY EXTUBATED. RN AVIS AT BEDSIDE.
[2017-12-16] MEDS ORDERED: NORMAL SALINE FLUSH 10 ML DISP.SYRIN IV ONE (20:09)
[2017-12-16] MEDS ORDERED: OSELTAMIVIR PHOSPHATE PO SCH ×3 (21:00)
[2017-12-16] MEDS ORDERED: OSELTAMIVIR PHOSPHATE 75 MG CAPSULE PO SCH (21:00)
[2017-12-16] MEDS ORDERED: ATORVASTATIN 20 MG TABLET PO SCH (21:00)
[2017-12-16] MEDS ORDERED: WATER FOR INJECTION STERILE PO SCH ×3 (21:00)
[2017-12-16] MEDS ORDERED: SIMPLE PO SCH ×3 (21:00)
[2017-12-17] MEDS ORDERED: FAMOTIDINE. 20 MG/2 ML VIAL IV SCH (09:00)
[2017-12-17] MEDS ORDERED: LEVOFLOXACIN 500 MG/D5W 500 MG in PREMIXED 1 EACH IV SCH (13:00)
== END 2017-12-16 20:10 | disposition expired | DRG 871 ==
LOC: ER 12:42 → CCU 21:19
PROVIDERS: ADMIT Internal Medicine; ATTEND Internal Medicine
PROC: 5A09357 Assistance with Respiratory Ventilation, Less than 24 Consecutive Hours, Continuous Positive Airway Pressure (ICD-10-PCS; 2017-12-15)
PROC: 02HV33Z Insertion of Infusion Device into Superior Vena Cava, Percutaneous Approach (ICD-10-PCS; 2017-12-15)
PROC: 5A1935Z Respiratory Ventilation, Less than 24 Consecutive Hours (ICD-10-PCS; principal; 2017-12-16)
PROC: 0BH17EZ Insertion of Endotracheal Airway into Trachea, Via Natural or Artificial Opening (ICD-10-PCS; 2017-12-16)
DX: A41.9 Sepsis, unspecified organism (principal); I21.A1 Myocardial infarction type 2; E43 Unspecified severe protein-calorie malnutrition; J96.01 Acute respiratory failure with hypoxia; K72.00 Acute and subacute hepatic failure without coma; J96.02 Acute respiratory failure with hypercapnia; N17.0 Acute kidney failure with tubular necrosis; R65.21 Severe sepsis with septic shock; Z51.5 Encounter for palliative care; Z66 Do not resuscitate; J10.08 Influenza due to other identified influenza virus with other specified pneumonia; I50.31 Acute diastolic (congestive) heart failure; J15.9 Unspecified bacterial pneumonia; Z68.1 Body mass index [BMI] 19.9 or less, adult; J44.0 Chronic obstructive pulmonary disease with (acute) lower respiratory infection; E87.1 Hypo-osmolality and hyponatremia; I48.0 Paroxysmal atrial fibrillation; K21.9 Gastro-esophageal reflux disease without esophagitis; K44.9 Diaphragmatic hernia without obstruction or gangrene; J84.10 Pulmonary fibrosis, unspecified; K57.30 Diverticulosis of large intestine without perforation or abscess without bleeding; N20.0 Calculus of kidney; E09.9 Drug or chemical induced diabetes mellitus without complications; T38.0X5A Adverse effect of glucocorticoids and synthetic analogues, initial encounter; Y92.89 Other specified places as the place of occurrence of the external cause; Z79.52 Long term (current) use of systemic steroids; Z79.01 Long term (current) use of anticoagulants; Z79.899 Other long term (current) drug therapy; Z80.0 Family history of malignant neoplasm of digestive organs; Z85.820 Personal history of malignant melanoma of skin; Z87.01 Personal history of pneumonia (recurrent); L12.1 Cicatricial pemphigoid; I11.0 Hypertensive heart disease with heart failure; E87.5 Hyperkalemia; I70.0 Atherosclerosis of aorta; Z95.0 Presence of cardiac pacemaker
CPT/HCPCS: 36415; 36600; 70030-TC; 71045; 83605; 83735; 84100; 85025; 85610; 87040; 87070; 87086; 87400; 93005; 93307; 94002; 94640; 94660; A4663; J1265; J1815; J1956; J2270; J2370; J2543; J2650; J2920; J3370; J3490; J3590; J7030; J7040; J7050; J7060